=== PATIENT | female | born 1940 | race Caucasian/White ===

== ENCOUNTER 2017-07-31 18:09 | Emergency (ER) | payer MEDICARE ==
[2017-07-31 18:51] LABS: #Basophils 0.1 thou/uL (0.0-0.2); #Eosinphils 0.2 thou/uL (0.0-0.7); #Lymphocytes 1.7 thou/uL (1.20-3.40); #Monocytes 0.8 thou/uL (0.11-0.59); #Neutrophils 5.2 thou/uL (1.40-6.50); %Basophils 0.8 % (0.0-1.0); %Eosinophils 2.9 % (0.0-10.0); %Lymphocytes 21.4 % (21.0-51.0); %Monocytes 9.6 % (0.0-10.0); Hematocrit 46.2 % (36.0-47.0); Mean Platelet Volume 8.2 fL (7.4-10.4); Red Blood Cell (RBC) Count 4.48 mill/uL (4.20-5.40); White Blood Cell (WBC) Count 7.9 thou/uL (4.8-10.8)
[2017-07-31 19:06] LABS: Prothrombin Time 27.8 SEC (12.0-14.7)
[2017-07-31 19:12] LABS: ALT (SGPT) 15 U/L (8-55); AST (SGOT) 28 U/L (5-34); Alkaline Phosphatase 132 U/L (40-150); Anion Gap 14 mmol/L (10-20); BUN (Urea Nitrogen) 23 mg/dL (9.8-20.1); Calc. Creatinine Clearance 0 mL/min (70-130); Calcium 9.2 mg/dL (7.8-10.44); Carbon Dioxide 27 mmol/L (23-31); Chloride 100 mmol/L (98-107); Estimated GFR-MDRD 45; Globulin 3.1 g/dL (2.4-3.5); Protein, Total 7.1 g/dL (6.0-8.3)
[2017-07-31 19:16] LABS: Troponin I Less than 0.010 ng/mL (< 0.028)
--- NOTE | 2017-07-31 19:17 | RAD ---
PORTABLE CHEST: 07/31/17 HISTORY: Heart palpitations. The lungs are clear of infiltrate. No evidence of vascular congestion or edema. Heart size is upper n ormal. Dural lead pacemaker noted. Postoperative changes involving the cervical spine. Left shoulder prosthesis. IMPRESSION: No acute lung process. POS: [facility]
[2017-07-31 22:12] LABS: Troponin I Less than 0.010 ng/mL (< 0.028)
--- NOTE | 2017-09-07 10:41 | EKG ---
Test Reason : PALPITATIONS Blood Pressure : / mmHG Vent. Rate : 069 BPM Atrial Rate : 069 BPM P-R Int : 226 ms QRS Dur : 094 ms QT Int : 410 ms P-R-T Axes : 004 -06 023 degrees QTc Int : 439 ms Atrial-paced rhythm with prolonged AV conduction Nonspecific ST abnormality Abnormal ECG Confirmed by CHRIS Oliveira, PREMA ([id number]), tape editor PAULETTE CAMPBELL ([id number]) on 09/07/2017 10:41:05 AM Referred By: MD PEREZ Confirmed By:PREMA PEREZ M.D.
== END 2017-07-31 22:50 | disposition home or self-care (01) ==
LOC: ERS 18:09
DX: R00.2 Palpitations (principal); E78.5 Hyperlipidemia, unspecified; I10 Essential (primary) hypertension; Z86.73 Personal history of transient ischemic attack (TIA), and cerebral infarction without residual deficits; F32.9 Major depressive disorder, single episode, unspecified
CPT/HCPCS: 36415; 71010; 80053; 82553; 83880; 84484; 85025; 85610; 93005

== ENCOUNTER 2017-08-02 02:05 | Inpatient (IN) | payer MEDICARE ==
[2017-08-02] MEDS ORDERED: Aspirin 325 MG TAB ONE (02:52)
[2017-08-02] MEDS ORDERED: Diltiazem HCl 125 MG, Admixture Fee 1 EACH in Sodium Chloride 0.9% 100 ML SLOW IVP SCH (03:00)
[2017-08-02 03:12] LABS: #Eosinphils 0.2 thou/uL (0.0-0.7); #Monocytes 0.9 thou/uL (0.11-0.59); #Neutrophils 6.3 thou/uL (1.40-6.50); %Basophils 0.4 % (0.0-1.0); %Lymphocytes 21.1 % (21.0-51.0); %Monocytes 9.7 % (0.0-10.0); Mean Platelet Volume 8.2 fL (7.4-10.4); Red Blood Cell (RBC) Count 4.44 mill/uL (4.20-5.40); White Blood Cell (WBC) Count 9.5 thou/uL (4.8-10.8)
[2017-08-02 03:18] LABS: PTT 41.1 SEC (22.9-36.1); Prothrombin Time 27.4 SEC (12.0-14.7)
[2017-08-02 03:32] LABS: ALT (SGPT) 15 U/L (8-55); AST (SGOT) 26 U/L (5-34); Alkaline Phosphatase 155 U/L (40-150); Anion Gap 15 mmol/L (10-20); BUN (Urea Nitrogen) 26 mg/dL (9.8-20.1); Bilirubin, Total 0.5 mg/dL (0.2-1.2); CK (CPK) 35 U/L (29-168); Calc. Creatinine Clearance 0 mL/min (70-130); Calcium 9.2 mg/dL (7.8-10.44); Carbon Dioxide 25 mmol/L (23-31); Chloride 103 mmol/L (98-107); Estimated GFR-MDRD 43; Globulin 3.1 g/dL (2.4-3.5); Lipase 30 U/L (8-78)
[2017-08-02 03:36] LABS: Troponin I Less than 0.010 ng/mL (< 0.028)
[2017-08-02] MEDS ORDERED: Sodium Chloride 0.9% 1,000 ML IV SCH (06:06)
[2017-08-02] MEDS ORDERED: Ondansetron ODT 4 MG TAB SL PRN (06:06)
[2017-08-02] MEDS ORDERED: Acetaminophen 325 MG TAB PO PRN ×2 (06:06→08:10)
[2017-08-02] MEDS ORDERED: Ondansetron HCl/PF 4 MG/2 ML Vial IVP PRN ×2 (06:06→08:10)
[2017-08-02 06:52] VITALS: BMI 36.8
[2017-08-02 06:54] LABS: Troponin I Less than 0.010 ng/mL (< 0.028)
[2017-08-02] MEDS ORDERED: FLU VACC TS2017-18 (>65YR) 0.5 ML SYRINGE IM ONE (07:00)
[2017-08-02] MEDS ORDERED: Ondansetron ODT 4 MG TAB PO PRN (08:10)
[2017-08-02] MEDS ORDERED: ALENDRONATE SODIUM 70 MG PO SCH (08:15)
[2017-08-02] MEDS ORDERED: Warfarin Sodium 5 MG TAB PO SCH (08:15)
[2017-08-02] MEDS ORDERED: Warfarin Sodium 10 MG TAB PO SCH (08:15)
--- NOTE | 2017-08-02 08:34 | HP ---
PRIMARY CARE PHYSICIAN: Lorene Quick. FIRE AND EXPLOSION INVESTIGATOR: Henry Diehl D.O. CHIEF COMPLAINT: "My heart is racing and my chest feels tight and heavy." HISTORY OF PRESENT ILLNESS: Ms. Augustine is a pleasant 77-year-old female that has a history of chroni c atrial fibrillation as well as hypertension and has had an ischemic stroke. She was in her usual s [facility] until Saturday during the day. She says that she had just sat down to watch some TV when she started feeling some racing in her heart and felt like she had some tightness. She came to the emergency room for evaluation and she says by the time she got to the ER, her symptoms had resolv ed and she went home. She says that yesterday it started happening again. This time happened throug hout much of the day and into the night lasting at least 7 hours straight. She says that she felt ag ain the chest tightness which did not radiate, but then she did also have some difficulty with breath ing like she was having an asthma attack. She also felt lightheaded and could tell that her heart wa s racing. For this reason, she came to the ER once again. This time she agreed to admission and was placed on a Cardizem drip and is being admitted for further evaluations. She says she sees Dr. Diehl normally as her natural fabricator and he had planned to see her this coming Saturday and ran some "she says vascular studies" and then after that make some recommendations with regards to her atrial fibrillat ion. REVIEW OF SYSTEMS: CONSTITUTIONAL: There have been no fevers, chills, no night sweats, no weight lo ss. HEENT: No headaches, but some dizziness, no visual changes, no sore throat, rhinorrhea, neck pa in, no adenopathy. PULMONARY: No hemoptysis, no cough. CARDIOVASCULAR: As of the history of prese nt illness. She denies any PND. She denies any increasing lower extremity edema. GASTROINTESTINAL: She denies any abdominal pain. She has had no nausea, no vomiting, no change in bowels. GENITOURI NARY: No urinary frequency, hematuria, no hesitancy. NEUROLOGIC: No focal weakness, numbness or se izures. PSYCHIATRIC: No symptoms of anxiety or depression. SKIN AND INTEGUMENT: No skin changes. No rash. PAST MEDICAL HISTORY: Significant for hyperlipidemia, hypertension, chronic atrial fibrillation, cer ebrovascular disease and CVA in 1999. PAST SURGICAL HISTORY: She has had a pacemaker, cholecystectomy, hysterectomy, bilateral knee replac ement surgeries, left shoulder replacement surgery, cervical and lumbar fusions. ALLERGIES: No known drug allergies. SOCIAL HISTORY: She is . She is a nonsmoker and nondrinker. She had 2 children, one living. FAMILY HISTORY: Significant for cancer in her sister as well as her mother with heart disease in gra ndfather as well. MEDICATIONS: Include sotalol 120 mg daily, CoQ10 100 mg daily, Coumadin 10 mg and 5 mg as directed, omeprazole 20 mg daily, levothyroxine 137 mcg daily, Lasix 40 mg as needed, citalopram 20 mg daily, Coreg 12.5 mg twice a day, atorvastatin 10 mg daily, Elavil 100 mg daily, and alendronate 70 mg once a week. PHYSICAL EXAMINATION: GENERAL: She is alert and oriented. She appears to be in no acute distress. VITAL SIGNS: Her heart rate is ranging from 100-120, respiratory rate of 16, temperature is 97.6, bl ood pressure was 97/57. HEENT: Her pupils are equal, round, and reactive. Extraocular muscles are intact. Her sclerae are anicteric. Throat, no erythema, no exudates. NECK: No adenopathy, no bruits. LUNGS: Clear. No wheezing, no rales. CARDIOVASCULAR: Her heart rate is irregularly irregular and also tachycardic. I am not able to appr eciate any murmurs. ABDOMEN: Soft, it is nontender and nondistended. Positive for bowel sounds. EXTREMITIES: There is trace edema. NEUROLOGIC: Neurologically, the exam is nonfocal. IMAGING AND LABORATORY DATA: On her EKG, it was atrial fibrillation with rapid ventricular response with some nonspecific ST wave changes. INR is 2.4. Her white blood cell count 9.5, hemoglobin 15.8, hematocrit is 46, platelet count is 191. Sodium 139, potassium 3.5, chloride is 103, CO2 is 25, BUN of 26, creatinine 1.23, glucose was 105, troponin is less than 0.010. TSH is slightly elevated at 6 .5. ASSESSMENT AND PLAN: 1. This is a pleasant 77-year-old female who was admitted with atrial fibrillation and rapid ventric ular response. She is already on sotalol as well as Coreg. However, she has had a rapid heart rate despite these two medications. She will be admitted and started on IV Cardizem. Her blood pressure is actually slightly low and since she is already on an antiarrhythmic, I will hold off on adding dig oxin. She is relatively asymptomatic, but again her blood pressure is on the lower side. Cardiology will be consulted to help continue the management of the atrial fibrillation. She is already antico agulated with therapeutic INR for stroke prevention. 2. For hypertension, as previously stated, her blood pressure is on the low side; therefore, we will hold on Coreg. At this time, she also does not appear to be volume overloaded and therefore Lasix c an be held as well. 3. History of hypothyroidism, her TSH is elevated, which would actually indicate that she is underre placed with regards to her thyroid function. We will check a free T4 for completeness. 4. Further recommendations will be based on Cardiology input.
[2017-08-02] MEDS ORDERED: Non-Formulary Item 1 EACH (Levothyroxine Sodium [Synthroid] 137 MCG) PO SCH (09:00)
[2017-08-02] MEDS ORDERED: Non-Formulary Item 1 EACH (Ubidecarenone [Coq-10] 100 MG) PO SCH (09:00)
[2017-08-02] MEDS ORDERED: Aspirin 325 MG TAB PO SCH (09:00)
[2017-08-02] MEDS ORDERED: Non-Formulary Item 1 EACH (Sotalol Hcl [Sotalol] 120 MG) PO SCH (09:00)
[2017-08-02] MEDS: Amitriptyline HCl 100 MG TAB PO SCH (09:04)
[2017-08-02] MEDS: Atorvastatin Calcium 10 MG TAB PO SCH (09:05)
[2017-08-02] MEDS: Famotidine 20 MG TAB PO SCH ×2 (09:05→20:49)
[2017-08-02] MEDS: Sotalol HCl 80 MG TAB PO SCH (09:05)
[2017-08-02] MEDS: Ubidecarenone 50 MG CAP PO SCH (09:05)
[2017-08-02] MEDS: Citalopram 20 MG TAB PO SCH (09:09)
--- NOTE | 2017-08-02 10:12 | RAD ---
PORTABLE UPRIGHT FRONTAL CHEST RADIOGRAPH: Date: 08-02-17 Comparison: 07-31-17 History: Chest pain. FINDINGS: Stable dual-lead transvenous pacing device. Incompletely assessed cervical and lumbar spine hardware are present. There is a left shoulder arthroplasty present. There is no pneumothorax, pleural fluid, focal consolidation or alveolar edema. Descending thoracic aorta is tortuous. IMPRESSION: Stable appearance of the chest. POS: [facility]
[2017-08-02 10:14] LABS: Troponin I Less than 0.010 ng/mL (< 0.028)
--- NOTE | 2017-08-02 12:52 | CON ---
DATE OF CONSULTATION: 08/02/2017 REASON FOR CONSULTATION: Atrial fibrillation. HISTORY OF PRESENT ILLNESS: Ms. Augustine is a very pleasant 77-year-old woman who is a patient of Dr. Buddy Diehl. The patient has a history of paroxysmal atrial fibrillation. Recently, she presented wit h heart racing and tachycardia. She states she has had more episodes in the last several months. Emelia hannah has been on sotalol and monitored by Dr. Buddy Diehl. During my visit, she converted to sinus rhythm and feels much better. PAST MEDICAL HISTORY: Hypertension, hyperlipidemia, atrial fibrillation, CVA, pacemaker, cholecystec heraclio, hysterectomy, bilateral knee replacement, left shoulder surgery, lumbar fusion. ALLERGIES: None. SOCIAL HISTORY: No current tobacco or alcohol use. HOME MEDICATIONS: Include sotalol, CoQ 10, Coumadin, omeprazole, levothyroxine, Lasix, citalopram, C oreg, atorvastatin, Elavil and alendronate. REVIEW OF SYSTEMS: Ten point review of systems is reviewed and as above, otherwise negative. PHYSICAL EXAMINATION: VITAL SIGNS: 106/55, pulse 60, temperature 98.5. GENERAL: Patient is a pleasant female who is in no acute distress. The patient appears her stated ag e. NEUROLOGIC: The patient is alert and oriented times 3 with no focal neurologic deficits. HEENT: Sclerae without icterus. Mouth has moist mucous membranes with normal pallor. NECK: No JVD. Carotid upstroke brisk. No bruits bilaterally. LUNGS: Clear to auscultation with unlabored respirations. BACK: No scoliosis or kyphosis. CARDIAC: Regular rate and rhythm with normal S1 and S2. No S3 or S4 noted. No significant rubs, mur murs, thrills, or gallops noted throughout the precordium. PMI is not displaced. There is no parast ernal heave. ABDOMEN: Soft, nontender, nondistended. No peritoneal signs present. No hepatosplenomegaly. No abn ormal striae. EXTREMITIES: 2+ femoral and 2+ dorsalis pedis pulses. No cyanosis, clubbing, or edema. SKIN: No gross abnormalities. PERTINENT LABS: Hemoglobin 15.8, INR of 2.4, creatinine 1.23. TSH 6.55. IMPRESSION: Paroxysmal atrial fibrillation. RECOMMENDATIONS: The patient's creatinine clearance is estimated at 75 so will not make any adjustme nts in her sotalol. Will continue. I did discuss ablation given that her symptoms are now occurring more often. She is open to the recommendation. From my standpoint, would continue Coumadin in rubio tion to sotalol. It would be okay from my standpoint to discharge home with close outpatient followu guille
[2017-08-02] MEDS: Nystatin Cream 30 GM TUBE TOP SCH (21:10)
[2017-08-03 05:58] LABS: Prothrombin Time 35.7 SEC (12.0-14.7)
[2017-08-03] MEDS ORDERED: Levothyroxine Sodium 112 MCG TAB PO SCH (06:00)
[2017-08-03] MEDS ORDERED: Levothyroxine Sodium 25 MCG TAB PO SCH (06:00)
[2017-08-03 06:21] LABS: Anion Gap 10 mmol/L (10-20); BUN (Urea Nitrogen) 15 mg/dL (9.8-20.1); Calc. Creatinine Clearance 95 mL/min (70-130); Calcium 8.4 mg/dL (7.8-10.44); Carbon Dioxide 24 mmol/L (23-31); Chloride 109 mmol/L (98-107); Estimated GFR-MDRD 67
--- NOTE | 2017-08-03 08:02 | PDOC.PN ---
- Subjective Encounter Start Date: 08/03/17 Encounter Start Time: 08:00 Ms. Augustine was seen today in follow-up of atrial fibrillation. She does not have any complaints today. - Objective Resuscitation Status: Resuscitation Status FULL:Full Resuscitation MAR Reviewed: Yes Vital Signs & Weight: Vital Signs (12 hours) Temp Pulse Resp BP Pulse Ox 08/03/17 06:12 97.8 F 61 18 110/55 L 94 L Weight Admit Weight 227 lb 14.4 oz Weight 227 lb 8 oz I&O: 08/02/17 08/03/17 08/04/17 06:59 06:59 06:59 Intake Total 1160 Output Total 300 Balance 860 Result Diagrams: 08/02/17 02:57 08/03/17 05:28 Phys Exam - Physical Examination HEENT: PERRLA Respiratory: no wheezing, no rales, no rhonchi, clear to auscultation bilateral Cardiovascular: RRR, no significant murmur Gastrointestinal: soft, non-tender, positive bowel sounds Musculoskeletal: no edema Dx/Plan (1) Atrial fibrillation Code(s): I48.91 - UNSPECIFIED ATRIAL FIBRILLATION Status: Acute (2) Hypertension Code(s): I10 - ESSENTIAL (PRIMARY) HYPERTENSION Status: Chronic (3) Cerebral vascular accident Code(s): I63.9 - CEREBRAL INFARCTION, UNSPECIFIED Status: Resolved - Plan * Atrial Fibrillation- she has converted to sinus * HTN- blood pressure is on the lower side * She is stable from the Cardiac standpoint for discharge home. * Follow-up with Dr. Diehl on Saturday as scheduled
[2017-08-03 08:08] VITALS: BP 136/70; TEMP 98.9
[2017-08-03] MEDS: Sotalol HCl 80 MG TAB PO SCH (08:27)
[2017-08-03] MEDS: Atorvastatin Calcium 10 MG TAB PO SCH (08:27)
[2017-08-03] MEDS: Ubidecarenone 50 MG CAP PO SCH (08:27)
[2017-08-03] MEDS: Famotidine 20 MG TAB PO SCH (08:27)
[2017-08-03] MEDS: Amitriptyline HCl 100 MG TAB PO SCH (08:28)
[2017-08-03] MEDS: Citalopram 20 MG TAB PO SCH (08:28)
[2017-08-03] MEDS: Nystatin Cream 30 GM TUBE TOP SCH (08:29)
--- NOTE | 2017-08-03 16:21 | DIS ---
DATE OF ADMISSION: 08/02/2017 DATE OF DISCHARGE: 08/03/2017 PRIMARY CARE PHYSICIAN: HAN Hernandez DISCHARGE DISPOSITION: Home. PRIMARY DISCHARGE DIAGNOSES: 1. Atrial fibrillation with rapid ventricular response. 2. Hypertension. 3. History of hypothyroidism. DISCHARGE MEDICATIONS: Please note that the patient's Coreg is on hold due to low blood pressures as well as Lasix is also on hold. She is to continue sotalol 120 mg daily, CoQ10 of 100 mg daily, levo thyroxine 137 mcg p.o. daily, Celexa 20 mg daily, atorvastatin 10 mg daily, Elavil 100 mg daily, santiago dronate 70 mg every 7 days, and Coumadin 10 mg alternating with 5mg. Please note that the patient is to take the 5 mg dose of Coumadin tonight instead of 10 due to an INR of 3.4. CODE STATUS: FULL CODE. ALLERGIES: No known drug allergies. HOSPITAL COURSE: Ms. Augustine is a pleasant 77-year-old female who presented to the emergency room aft er having chest heaviness as well as a racing in her heart. She was evaluated in the ER and found to be in atrial fibrillation with rapid ventricular response. She was admitted and started on a Cardiz em drip. The following day the patient's heart rate improved and she was seen by Cardiology while sh e was being evaluated by Cardiology, she converted into sinus rhythm and has remained in sinus rhythm overnight. She has an appointment in just [address] Diehl on Saturday and Dr. Michele leos that she could be discharged home and follow up with Dr. Diehl on Saturday as already scheduled and co ntinue the sotalol and consider ablation in the outpatient setting.
[2017-08-03] MEDS ORDERED: Warfarin Sodium 5 MG TAB PO SCH (17:00)
[2017-08-04] MEDS ORDERED: Warfarin Sodium 10 MG TAB PO SCH (17:00)
[2017-08-05] MEDS ORDERED: Alendronate Sodium 70 mg Tablet PO SCH (06:00)
== END 2017-08-03 10:27 | disposition home or self-care (01) | DRG 310 ==
LOC: ERS 02:05 → 2SW 03:49 → OBSVTOIN 08:10 → 2NO 09:41
PROVIDERS: ADMIT Internal Medicine; ATTEND Internal Medicine
DX: I48.0 Paroxysmal atrial fibrillation (principal); I10 Essential (primary) hypertension; Z79.01 Long term (current) use of anticoagulants; E03.9 Hypothyroidism, unspecified; E78.5 Hyperlipidemia, unspecified; Z86.73 Personal history of transient ischemic attack (TIA), and cerebral infarction without residual deficits; Z95.0 Presence of cardiac pacemaker; Z96.653 Presence of artificial knee joint, bilateral; Z96.612 Presence of left artificial shoulder joint
CPT/HCPCS: 36415; 71010; 80048; 80053; 82553; 83690; 83880; 84439; 84443; 84484; 85025; 85610; 85730; 90471; 90682; 93005; 96361; 96365; 96376; A4216; G0008; J7050; Q2036

== ENCOUNTER 2017-08-15 10:30 | Emergency (ER) | payer MEDICARE ==
[2017-08-15 11:33] LABS: Hematocrit 48.5 % (36.0-47.0); Mean Platelet Volume 8.8 fL (7.4-10.4); Red Blood Cell (RBC) Count 4.68 mill/uL (4.20-5.40); White Blood Cell (WBC) Count 7.2 thou/uL (4.8-10.8)
[2017-08-15 11:49] LABS: Troponin I Less than 0.010 ng/mL (< 0.028)
[2017-08-15 11:50] LABS: ALT (SGPT) 18 U/L (8-55); AST (SGOT) 46 U/L (5-34); Alkaline Phosphatase 124 U/L (40-150); Anion Gap 14 mmol/L (10-20); BUN (Urea Nitrogen) 26 mg/dL (9.8-20.1); Bilirubin, Total 0.8 mg/dL (0.2-1.2); CK (CPK) 24 U/L (29-168); Calc. Creatinine Clearance 0 mL/min (70-130); Calcium 9.3 mg/dL (7.8-10.44); Carbon Dioxide 28 mmol/L (23-31); Chloride 104 mmol/L (98-107); Estimated GFR-MDRD 49; Globulin 3.8 g/dL (2.4-3.5); Protein, Total 7.7 g/dL (6.0-8.3)
[2017-08-15 11:59] LABS: #Eosinphils 0.2 thou/uL (0.0-0.7); #Lymphocytes 1.5 thou/uL (1.20-3.40); #Monocytes 0.7 thou/uL (0.11-0.59); #Neutrophils 4.8 thou/uL (1.40-6.50); %Basophils 0.1 % (0.0-1.0); %Eosinophils 2.2 % (0.0-10.0); %Lymphocytes 20.7 % (21.0-51.0); %Monocytes 9.9 % (0.0-10.0)
--- NOTE | 2017-08-15 12:19 | RAD ---
PORTABLE UPRIGHT FRONTAL CHEST RADIOGRAPH: 08/15/2017 HISTORY: Chest pain and shortness of breath. COMPARISON: 08/02/2017 FINDINGS: There is a shoulder arthroplasty on the left. There is cervical spine hardware present. There is a dual-lead transvenous pacing device. There is no pneumothorax, pleural fluid, focal consolidation, o r alveolar edema. IMPRESSION: No acute findings. Stable appearance of the chest. POS: [facility]
[2017-08-15 13:04] LABS: PTT 34.1 SEC (22.9-36.1)
== END 2017-08-15 15:22 | disposition home or self-care (01) ==
LOC: ERS 10:30
DX: I48.91 Unspecified atrial fibrillation (principal); E78.5 Hyperlipidemia, unspecified; I10 Essential (primary) hypertension; F32.9 Major depressive disorder, single episode, unspecified
CPT/HCPCS: 71010; 80053; 82553; 84484; 85025; 85610; 85730; 93005

== ENCOUNTER 2018-04-23 07:29 | Outpatient (CLI) | payer MEDICARE ==
--- NOTE | 2018-04-23 10:10 | CT ---
CTA CHEST WITH CONTRAST: TECHNIQUE: Multiple axial tomograms obtained through the chest with attenuation to the heart. Arterial phase en hancement was performed following a coronary artery angio. Multiplanar reconstruction. INDICATION: Coronary mapping prior to ablation procedure. FINDINGS: Origin of the left and right coronary arteries appear normally located. There is calcified plaque in volving the left main extending to the bifurcation with some calcification seen at the proximal LAD. Calcification is also present in the proximal circumflex and LAD. There is mitral annulus calcifica tion noted. There is not a dedicated coronary artery CT exam and, therefore, is not adequate for assessing soares ry stenosis. The patient is right coronary dominant. There is a dual-lead pacemaker device in place with a right atrial lead and a right ventricular lead which appear adequately positioned. Coronary veins appear normal. There is a small sliding diaphragmatic hernia. There is a small eventration involving the posterior left hemidiaphragm. There are chronic lung pare nchymal changes, although the lung conner are not completely imaged. Most of the right lung is not i sujata. IMPRESSION: 1. Coronary artery calcification as described. Coronary artery anatomy appears normal with patient being right coronary dominant. 2. There is no evidence of proximal pulmonary embolus. There is no evidence of thoracic aortic diss ection. No evidence of thoracic aortic aneurysm. POS: [facility]
[2018-04-23 10:41] LABS: Hemoglobin 15.9 g/dL (12.0-16.0); Mean Corpuscular HGB CONC 33.7 g/dL (32.0-36.0); Mean Corpuscular Hemoglobin 33.7 pg (27.0-31.0); Mean Platelet Volume 9.4 fL (7.4-10.4); Platelet Count 137 thou/uL (130-400); RBC Distribution Width 12.1 % (11.5-14.5); Red Blood Cell (RBC) Count 4.73 mill/uL (4.20-5.40); White Blood Cell (WBC) Count 5.2 thou/uL (4.8-10.8)
[2018-04-23 10:47] LABS: INR-International Normal Ratio 3.3; Prothrombin Time 33.4 SEC (12.0-14.7)
[2018-04-23 10:48] LABS: PTT 51.3 SEC (22.9-36.1)
[2018-04-23 10:59] LABS: Anion Gap 12 mmol/L (10-20); BUN (Urea Nitrogen) 11 mg/dL (9.8-20.1); Calc. Creatinine Clearance 0 mL/min (70-130); Calcium 8.7 mg/dL (7.8-10.44); Carbon Dioxide 23 mmol/L (23-31); Chloride 106 mmol/L (98-107); Estimated GFR-MDRD 57; Glucose 94 mg/dL (83-110); Potassium 4.2 mmol/L (3.5-5.1); Sodium 137 mmol/L (136-145)
--- NOTE | 2018-04-23 12:22 | EKG ---
Test Reason : Blood Pressure : / mmHG Vent. Rate : 065 BPM Atrial Rate : 068 BPM P-R Int : 000 ms QRS Dur : 150 ms QT Int : 488 ms P-R-T Axes : 000 -72 094 degrees QTc Int : 507 ms Electronic ventricular pacemaker When compared with ECG of 15-AUG-2017 12:35, Electronic ventricular pacemaker has replaced Electronic atrial pacemaker (Ventricular pacing has rep laced atrial paced rhythm) Confirmed by KHOA BARAJAS ([id number]) on 04/23/2018 12:21:55 PM Referred By: BHAVANA Confirmed By:KHOA BARAJAS
[2018-04-23] MEDS ORDERED: Iopamidol 370 76% 100 ML VIAL ONE (13:32)
== END 2018-04-23 07:30 | disposition home or self-care (01) ==
LOC: CT 07:29
PROVIDERS: ATTEND Internal Medicine Cardiovascular Disease
DX: I48.91 Unspecified atrial fibrillation (principal); I25.10 Atherosclerotic heart disease of native coronary artery without angina pectoris
CPT/HCPCS: 71275; 80048; 82565; 85027; 85610; 85730; 93005; 93010

== ENCOUNTER 2018-07-24 16:13 | Observation (INO) | payer MEDICARE ==
[2018-07-24 17:10] LABS: #Eosinphils 0.3 thou/uL (0.0-0.7); #Lymphocytes 1.8 thou/uL (1.20-3.40); #Monocytes 0.8 thou/uL (0.11-0.59); %Basophils 0.4 % (0.0-1.0); %Eosinophils 2.7 % (0.0-10.0); %Lymphocytes 17.8 % (21.0-51.0); Hemoglobin 16.9 g/dL (12.0-16.0); Mean Corpuscular HGB CONC 32.7 g/dL (32.0-36.0); Mean Corpuscular Hemoglobin 32.1 pg (27.0-31.0); Mean Platelet Volume 8.6 fL (7.4-10.4); Platelet Count 222 thou/uL (130-400); Red Blood Cell (RBC) Count 5.28 mill/uL (4.20-5.40); White Blood Cell (WBC) Count 9.9 thou/uL (4.8-10.8)
[2018-07-24 17:32] LABS: ALT (SGPT) 14 U/L (8-55); AST (SGOT) 23 U/L (5-34); Alkaline Phosphatase 132 U/L (40-150); Anion Gap 16 mmol/L (10-20); BUN (Urea Nitrogen) 24 mg/dL (9.8-20.1); Bilirubin, Total 1.2 mg/dL (0.2-1.2); CK (CPK) 35 U/L (29-168); Calc. Creatinine Clearance 0 mL/min (70-130); Calcium 9.1 mg/dL (7.8-10.44); Carbon Dioxide 26 mmol/L (23-31); Chloride 100 mmol/L (98-107); Estimated GFR-MDRD 45; Globulin 3.3 g/dL (2.4-3.5); Glucose 102 mg/dL (83-110); Potassium 4.1 mmol/L (3.5-5.1); Protein, Total 7.3 g/dL (6.0-8.3); Sodium 138 mmol/L (136-145)
[2018-07-24 17:36] LABS: CKMB 1.6 ng/mL (0-6.6); Troponin I Less than 0.010 ng/mL (< 0.028)
--- NOTE | 2018-07-24 18:21 | RAD ---
CHEST TWO VIEWS: 07/24/18 INDICATION: History of chest pain and heart palpitations. COMPARISON: Prior chest radiograph dated 08/15/17. FINDINGS: There is a dual lead pacemaker overlying the left chest wall. Heart size is normal. Lungs are clear. There is extensive instrumentation involving the lumbar spine and cervical spine. There is a left to ted shoulder replacement. IMPRESSION: No acute cardiopulmonary abnormality. POS: [facility]
[2018-07-24 20:15] LABS: INR-International Normal Ratio 1.8; PTT 35.8 SEC (22.9-36.1); Prothrombin Time 21.3 SEC (12.0-14.7)
[2018-07-24 21:14] LABS: Troponin I Less than 0.010 ng/mL (< 0.028)
[2018-07-24] MEDS ORDERED: Sodium Chloride 0.9% 1,000 ML IV SCH (21:18)
[2018-07-24 21:20] VITALS: BMI 38.9
[2018-07-24] MEDS: Sodium Chloride 0.9% 1,000 ML IV SCH (22:02)
[2018-07-24] MEDS ORDERED: Senokot S 8.6-50 MG TAB PO PRN (22:14)
[2018-07-24] MEDS ORDERED: Ondansetron ODT 4 MG TAB PO PRN (22:14)
[2018-07-24] MEDS ORDERED: Ondansetron PF 4 MG/2 ML Vial IVP PRN (22:14)
[2018-07-24] MEDS ORDERED: traMADol HCl 50 MG TAB PO PRN (22:20)
[2018-07-24] MEDS ORDERED: Carvedilol 6.25 MG TAB PO SCH (22:45)
[2018-07-24] MEDS ORDERED: Warfarin Sodium 5 MG TAB PO SCH (22:45)
[2018-07-24] MEDS ORDERED: Atorvastatin Calcium 10 MG TAB PO SCH ×2 (22:45→23:15)
[2018-07-24] MEDS ORDERED: Sotalol HCl 80 MG TAB PO SCH (22:45)
[2018-07-24] MEDS ORDERED: Famotidine 20 MG TAB PO SCH (22:45)
[2018-07-24] MEDS ORDERED: Amitriptyline HCl 100 MG TAB PO SCH (22:45)
[2018-07-24 23:25] LABS: Troponin I Less than 0.010 ng/mL (< 0.028)
[2018-07-24] MEDS ORDERED: Digoxin 0.5 MG/2 ML AMP SLOW IVP SCH (23:45)
[2018-07-25] MEDS ORDERED: Digoxin 0.5 MG/2 ML AMP ONE (00:01)
[2018-07-25] MEDS: Levothyroxine 150 MCG TAB PO SCH (04:05)
--- NOTE | 2018-07-25 04:09 | HP ---
CHIEF COMPLAINT: Palpitations. HISTORY OF PRESENT ILLNESS: This is a 78-year-old female with past medical history of hyperlipidemia, hypertension, ischemic cerebrovascular accident, status post pacemaker presenting with palpitations. Per the patient, she normally gets palpitations. Recently, she actually had a cardiac ablation done. The date of the cardiac ablation was 04/24/2018 and patient also received a pacemaker, because her old pacemaker was not working. Patient states that after the procedure, she has had some palpitations, which had spontaneously resolved; however, on the night prior to the day of admission, patient states that she sustained severe palpitations, which was not stopping. Patient states that regardless of what she did, she chewed some aspirin, nitro it did not help. Therefore, the patient decided to come into the hospital to be evaluated today. At this point, patient denies any headaches, shortness of breath, chest pain, abdominal pain, hematuria, hematochezia, melena. Of note, patient was seen in our hospital on 08/02/2017 and was admitted for atrial fibrillation RVR. Patient also was treated for hypertension and hypothyroidism during that time. REVIEW OF SYSTEMS: Positive for palpitations. Otherwise, as documented in the HPI. All systems were reviewed and are negative. PAST MEDICAL HISTORY: Atrial fibrillation, hyperlipidemia, hypertension, CVA, coronary artery disease, status post pacemaker. FAMILY HISTORY: Reviewed and noncontributory. PAST SURGICAL HISTORY: Cholecystectomy, hysterectomy, bilateral knee replacement, left shoulder surgical repair, lumbar and cervical surgeries. PSYCHIATRIC HISTORY: Depression. SOCIAL HISTORY: Patient drinks wine. Patient denies any illicit drug use and patient denies any smoking history. ALLERGIES: No known drug allergies. CURRENT MEDICATIONS: 1. Patient takes alendronate 70 mg. 2. Patient takes furosemide 20 mg p.o. b.i.d. 3. Patient takes potassium chloride 15 mEq p.o. every a.m. 4. Patient takes amitriptyline 100 mg p.o. 5. Patient takes atorvastatin calcium 10 mg p.o. 6. Carvedilol 12.5 mg b.i.d. 7. Vitamin D3 of 2000 units. 8. Fluoxetine 20 mg p.o. daily. 9. Levothyroxine 150 mcg. 10. Omeprazole 20 mg. 11. Sotalol 120 mg. 12. Tramadol 50 mg p.o. q.4 p.r.n. 13. Warfarin 5 mg. PHYSICAL EXAMINATION: VITAL SIGNS: Blood pressure is 94/51, pulse of 128, respiratory rate of 18, temperature of 98.3, O2 sat is 95. GENERAL: Patient is lying in bed, alert, oriented x3, does not appear to be in any acute distress. HEENT: Normocephalic, atraumatic. Pupils are equal, round, and reactive to light. Extraocular movements are intact. No scleral icterus. No conjunctival pallor. Mucous membranes are moist. Trachea is midline. NECK: No JVD. Full range of motion. LUNGS: Clear to auscultation bilaterally. No wheezing, no rales, no rhonchi is appreciated. CARDIOVASCULAR: Irregularly irregular. No murmur appreciated. ABDOMEN: Soft, nontender, nondistended, obese, positive bowel sounds in all quadrants. EXTREMITIES: Patient has 5/5 upper extremity strength and 5/5 lower extremity strength. No edema noted. Good pulses bilaterally at the upper and lower extremities. PSYCHIATRIC: Normal affect, alert and oriented x3. ASSESSMENT AND PLAN: This is a 78-year-old female being admitted for, 1. Atrial fibrillation with rapid ventricular response, patient has been started on digoxin. We will continue digoxin. We have consulted Cardiology, we will follow up with the recommendations. 2. Hypertension. We will monitor the patient's blood pressure closely. Currently, patient's blood pressure is on the low side. Blood pressure is about 100 systolic. We will continue to monitor the patient's blood pressure closely. 3. Hypothyroidism. Continue patient on home medications. 4. Acute on chronic kidney disease. We will continue patient on gentle hydration. We will stop all diuretics. 5. Deep venous thrombosis and gastrointestinal prophylaxis. MTDD
[2018-07-25 06:33] LABS: #Eosinphils 0.2 thou/uL (0.0-0.7); #Lymphocytes 1.7 thou/uL (1.20-3.40); #Monocytes 0.8 thou/uL (0.11-0.59); %Basophils 0.4 % (0.0-1.0); %Eosinophils 2.4 % (0.0-10.0); %Lymphocytes 19.7 % (21.0-51.0); %Monocytes 9.4 % (0.0-10.0); %Neutrophils 68.1 % (42.0-75.0); Mean Corpuscular HGB CONC 32.4 g/dL (32.0-36.0); Mean Corpuscular Volume 98.9 fL (78.0-98.0); Mean Platelet Volume 8.5 fL (7.4-10.4); Platelet Count 162 thou/uL (130-400); Red Blood Cell (RBC) Count 4.68 mill/uL (4.20-5.40); White Blood Cell (WBC) Count 8.8 thou/uL (4.8-10.8)
[2018-07-25] MEDS: Digoxin 0.5 MG/2 ML AMP SLOW IVP SCH ×2 (06:36→12:12)
[2018-07-25 06:47] LABS: Anion Gap 11 mmol/L (10-20); BUN (Urea Nitrogen) 22 mg/dL (9.8-20.1); Calc. Creatinine Clearance 89 mL/min (70-130); Calcium 8.3 mg/dL (7.8-10.44); Carbon Dioxide 26 mmol/L (23-31); Chloride 107 mmol/L (98-107); Estimated GFR-MDRD 59; Glucose 93 mg/dL (83-110); Potassium 3.6 mmol/L (3.5-5.1); Sodium 140 mmol/L (136-145)
[2018-07-25] MEDS: FLUoxetine HCl 20 MG CAP PO SCH (08:20)
[2018-07-25] MEDS: Sodium Chloride 0.9% 1,000 ML IV SCH (08:20)
[2018-07-25] MEDS: Acetaminophen 325 MG TAB PO PRN ×2 (08:21→21:38)
[2018-07-25] MEDS: Famotidine 20 MG TAB PO SCH ×3 (08:23→22:17)
[2018-07-25] MEDS ORDERED: Famotidine/PF 20 mg/2ml Vial SLOW IVP SCH (09:00)
[2018-07-25] MEDS ORDERED: Carvedilol 6.25 MG TAB PO SCH (09:00)
[2018-07-25] MEDS ORDERED: Non-Formulary Item 1 EACH (Omeprazole [Omeprazole] 20 MG) PO SCH (09:00)
[2018-07-25] MEDS ORDERED: PROPOFOL 200 MG/20 ML VIAL ONE (12:46)
[2018-07-25] MEDS ORDERED: PROPOFOL 20 ML ONE (12:49)
[2018-07-25] MEDS ORDERED: Sotalol HCl 80 MG TAB PO SCH ×3 (14:00→21:00)
--- NOTE | 2018-07-25 14:18 | CON ---
DATE OF CONSULTATINO: 07/25/2018 REFERRING PHYSICIAN: Suresh Bautista M.D. REASON FOR CONSULTATION: Atrial fibrillation with RVR. HISTORY OF PRESENT ILLNESS: Ms. Augustine is a 78-year-old woman known to our service for history of dr gifty refractory atrial fibrillation. She was initially seen by Dr. Btaeman in February of this year for atr ial fibrillation which was inadequately suppressed on sotalol and having a very symptomatic breakthro [facility] arrhythmia issues. She underwent elective pulmonary venous isolation ablation on 04/24/[address] Bateman and at that time she received a total minute 27 minutes RF energy delivered. She has bee n on sotalol for approximately 10 years by her recollection. She takes 120 mg once a day. She fredrick nued taking this medication after her ablation. She has not gone to our clinic for any followup visi ts since the time of her ablation. The day after her ablation she also had a generator change for he r pacemaker which was at [facility] and again she has not presented for any of her followup appointments for this either. She has a Medtronic dual chamber pacemaker. She contacted our office yesterday and s reporting heart racing and palpitations that have been ongoing since the day before. Now, she has had 1 or 2 similar episodes since her ablation, reports that they were all short in duration, lasting less than 3-4 hours and self-terminating. She has associated headache with her heart racing and pal pitations. She presented to the emergency room at [place] yesterday evening on the and found to be in atrial fibrillation with RVR. She was given some digoxin for rate control and placed in ob servation. Also, she takes warfarin for stroke prophylaxis, her INR was checked and it is slightly s ubtherapeutic at 1.8. Ms. Augustine today is feeling slightly improved with her heart rate under better control. She denies a ny shortness of breath, chest pain or pressure, syncope, near syncope, stroke or stroke-like symptoms . She does endorse that she has been very faithful with her warfarin, but has difficulty keeping the rapeutic INR ranges. She denies having missed any doses of her warfarin of late. PAST MEDICAL HISTORY: 1. Drug refractory atrial fibrillation, status post ablation in 04/2018. 2. Hyperlipidemia. 3. Hypertension. 4. Cerebrovascular accident. 5. Dual chamber permanent pacemaker placed for sinus node dysfunction. 6. Coronary artery disease (listed in her chart the patient denies ever having left heart catheteriz ation stent or bypass). REVIEW OF SYSTEMS: Positive for heart racing, palpitations and as per HPI, otherwise 12-point review of systems was conducted and negative. FAMILY HISTORY: Noncontributory. SOCIAL HISTORY: Positive for alcohol intake. Negative for illicit drug use or tobacco use. ALLERGIES: No known drug allergies. MEDICATIONS: Tramadol 50 mg q.4 hours p.r.n., warfarin 5 mg p.o. daily, sotalol 120 mg p.o. q.p.m., potassium 16 mEq q.a.m., omeprazole 20 mg q.a.m., Synthroid 150 mcg q.a.m., Lasix 20 mg p.o. q.a.m., Prozac 20 mg p.o. q.a.m., vitamin D 2000 units p.o. at bedtime, Coreg 12.5 mg p.o. b.i.d., atorvastat in 10 mg p.o. q.p.m., Elavil 100 mg p.o. q.p.m., and alendronate sodium 70 mg p.o. weekly. PHYSICAL EXAMINATION: VITAL SIGNS: Most recent vital signs; 98.2, pulse 121, respirations 18, oxygen is 95% on room air, b lood pressure 125/83, respirations are 14. GENERAL: Ms. Augustine is well groomed, well nourished. She is alert and oriented. Her speech is rimma r. Her affect is appropriate. NECK: Supple without jugular venous distention. Her thyroid is nonpalpable. LUNGS: Clear to auscultation bilaterally without wheezes, crackles or rhonchi. CARDIOVASCULAR: Heart rate is irregularly irregular and rapid. PMI is nondisplaced. ABDOMEN: Soft, nontender without palpable masses. EXTREMITIES: Warm and dry to touch without clubbing, cyanosis or edema. NEUROLOGIC: Grossly intact and nonfocal. Gait was not assessed. TELEMETRY: Telemetry was personally reviewed and reflect atrial fibrillation with varying RVR betwee n 100 and 130 beats per minute. No 12-lead EKGs were obtained, one has been ordered. LABORATORY: Chemistry: Potassium 3.6, creatinine 0.93 otherwise unremarkable. INR is 1.8. Hematol ogy is unremarkable. DEVICE INTERROGATION: The patient has a Medtronic dual chamber pacemaker, generator change in , adequate battery voltage. Normal functioning device shows atrial fibrillation burden of approxima tely 3% with ongoing atrial fibrillation since 07/23/2018. Additional episodes were seen in mid Sept ember that were less than 6 hours and self-terminating. ATP therapies are on and have less than 20% success rate at terminating atrial arrhythmias and restoring sinus mechanism. No additional arrhythm ias were seen. No programming changes were made to the device today. ASSESSMENT AND PLAN: 1. Paroxysmal atrial fibrillation with rapid ventricular response, refractory to sotalol. 2. CHADS-VASc score of 4, for age, gender and hypertension (not including coronary artery disease as the patient declines this in her history). 3. Oral anticoagulation on warfarin, subtherapeutic INR. RECOMMENDATIONS: We discussed atrial fibrillation and treatment options with Ms. Augustine. At this po int, she is only taking her sotalol once a day at a moderate dose. We will change her to 80 mg twice a day which will be a slight increase in the dose, but give her more consistent coverage from day to day and hopefully this will provide additional arrhythmia suppression for her. We will keep her ove rnight for monitoring of her 12-lead EKG and watching for any QTC prolongation with the increase in h er sotalol. We increased her warfarin to 7.5 mg with a repeat INR check in the morning, though she w ill likely need 7.5 mg and a repeat INR check in 3-4 days. She tells me that she gets her INRs check ed at [facility], but is considering having it checked at a clinic closer to her, bu t they are managed through Dr. aButista's office. I would recommend close followup with [facility] for tighter management of her INRs. Ultimately this is a late recurrence of her atrial fibr illation after her ablation in April and she will likely require redo ablation for more permanent tr eatment of her arrhythmias, but for now we will continue with antiarrhythmic drugs for suppression of her arrhythmias. In the meantime, we will proceed with a KERON cardioversion. We discussed risks, be nefits, and alternatives. She voices understanding and is willing to proceed which will be arranged shortly hereafter. Thank you for allowing us to participate in the care of this patient.
--- NOTE | 2018-07-25 14:21 | OP ---
DATE OF PROCEDURE: 07/25/2018 REASON FOR PROCEDURE: Mrs. Augustine is a 78-year-old woman with a history of atrial arrhythmias prior ablation in April, now with recurrent atypical atrial flutter. PROCEDURE: The patient received propofol Anesthesia specialist. After adequate level of sedation ac hieved, a 70 joule shock promptly converted the patient back to sinus rhythm, returned rate is 72 jennifer ts per minute. CONCLUSION: Successful cardioversion. PLAN: Increase sotalol 80 mg twice a day dose.
--- NOTE | 2018-07-25 16:12 | PDOC.PN ---
- Subjective Encounter Start Date: 07/25/18 Encounter Start Time: 16:11 Patient seen and examined with at bedside. She is s/p cardioversion that was successful. No complaints at this time. She denies chest pain, shortness of breath or palpitations. Dr Espinal following and increased Sotolol and Coumadin. - Objective Resuscitation Status: Resuscitation Status DNR:Do Not Resuscitate MAR Reviewed: Yes Vital Signs & Weight: Vital Signs (12 hours) Temp Pulse Resp BP BP Pulse Ox 07/25/18 15:30 98.4 F 75 18 118/62 93 L 07/25/18 15:26 72 07/25/18 13:49 98.0 F 72 16 104/61 92 L 07/25/18 12:12 72 07/25/18 11:27 98.3 F 121 H 18 125/83 95 07/25/18 07:36 98.4 F 104 H 20 105/69 94 L 07/25/18 06:36 108 H Weight Weight 241 lb I&O: 07/24/18 07/25/18 07/26/18 06:59 06:59 06:59 Intake Total 1050 571 Output Total 200 Balance 1050 371 Result Diagrams: 07/25/18 06:00 07/25/18 06:00 Radiology Reviewed by me: Yes EKG Reviewed by me: Yes Phys Exam - Physical Examination Constitutional: NAD HEENT: PERRLA, moist MMs, sclera anicteric, oral pharynx no lesions Neck: no nodes, no JVD, supple, full ROM Respiratory: no wheezing, no rales, no rhonchi, clear to auscultation bilateral Cardiovascular: RRR, no significant murmur, no rub Gastrointestinal: soft, non-tender, no distention, positive bowel sounds Musculoskeletal: no edema, pulses present, edema present Neurological: non-focal, normal sensation, moves all 4 limbs Lymphatic: no nodes Psychiatric: normal affect, A&O x 3 Skin: no rash, normal turgor, cap refill <2 seconds Deviation from normal: Mild diffuse bruising noted Dx/Plan - Plan cont current plan of care, plan discussed w/ family, DVT proph w/SCDs * Dr Espinal performed successful cardioversion. * INR subtherapeutic this morning therefore Coumadin increased * Sotolol also increased to twice daily. Monitor EKG changes * Monitor closely over night * Pending patient progress, may likely be discharged tomorrow.
[2018-07-25] MEDS ORDERED: Warfarin Sodium 7.5 MG TAB PO SCH (16:30)
[2018-07-25] MEDS ORDERED: Warfarin Sodium 5 MG TAB PO SCH ×2 (17:00)
[2018-07-25] MEDS ORDERED: Amitriptyline HCl 100 MG TAB PO SCH (21:00)
[2018-07-25] MEDS ORDERED: Atorvastatin Calcium 10 MG TAB PO SCH ×3 (21:00)
[2018-07-25] MEDS: Sotalol HCl 80 MG TAB PO SCH (21:19)
--- NOTE | 2018-07-25 23:01 | ECHO ---
The patient is a 78-year-old woman with a history of atrial arrhythmias, status post ablation in [facility]. Now presented with a medium late recurrence. She is on sotalol 120 mg at home. PROCEDURE: The patient received propofol by Anesthesia specialist. After adequate sedation achieved, the standa rd transesophageal echogram probe was passed into the distal esophagus without difficulty. Patient t olerated the procedure well, no complications noted. RESULTS: The left atrium is moderately enlarged about 4.6 cm in the horizontal diameter. Left appendage is we ll visualized and contains no clots. Left atrial appendage velocities are adequate at 40-50 cm per s econd. Four out of four pulmonary veins are well seen. The interatrial septum is free of defect. The mitral valve without significant regurgitation. Left ventricular systolic function is preserved. Increased wall thickness is seen only. LV size is n ormal, otherwise. The right side chambers are nondilated. No ventricular septal defect visualized. The pericardial space has somewhat echo dense material, mostly adjacent to the right ventricle and co uld represent old now organizing pericardial effusion which is not in a liquid state any more. Fat pad cannot be completely ruled out. The aortic valve has three leaflets without regurgitation or stenosis. The visualized portion of the ascending and descending aorta is without aneurysm, dissection or signi ficant atheroma. CONCLUSION: 1. No intracardiac clots. 2. Normal left ventricular systolic function. 3. Trace mitral regurgitation and tricuspid regurgitation. No other significant valvular abnormalit ies noted. 4. Organizing pericardial effusion focalizing only by the right ventricle without evidence of any he modynamic compromise. PLAN: Proceed with cardioversion.
[2018-07-26 05:31] LABS: INR-International Normal Ratio 1.6; Prothrombin Time 19.3 SEC (12.0-14.7)
[2018-07-26] MEDS: Levothyroxine 150 MCG TAB PO SCH (06:16)
[2018-07-26] MEDS: FLUoxetine HCl 20 MG CAP PO SCH (08:22)
[2018-07-26] MEDS: Famotidine 20 MG TAB PO SCH (08:22)
[2018-07-26] MEDS: Sotalol HCl 80 MG TAB PO SCH (08:22)
--- NOTE | 2018-07-26 10:40 | PRG ---
DATE OF SERVICE: 07/26/2018 SUBJECTIVE: Ms. Augustine is doing well. She is awake and alert. No complaints. She states she had a good day yesterday and she feels "great." OBJECTIVE: VITAL SIGNS: Blood pressure 128/68, pulse 68 and regular. LUNGS: Clear. CARDIAC: Normal S1, normal S2. ABDOMEN: Soft, nontender. EXTREMITIES: No edema. ASSESSMENT: 1. Status post atrial flutter with cardioversion yesterday. 2. Being loaded with sotalol while she is here on the heart monitor. 3. Previous ablation. PLAN: 1. Per Dr. Espinal's recommendations, she will be kept in the hospital until tomorrow on sotalol 80 mg twice a day. 2. If she is doing well, can go home tomorrow to follow up with Dr. Bautista in approximately 1 wee k.
[2018-07-26 12:02] VITALS: BP 129/66; TEMP 98.3
[2018-07-26] MEDS ORDERED: Warfarin Sodium 5 MG TAB PO SCH (17:00)
--- NOTE | 2018-07-30 08:14 | EKG ---
Test Reason : Blood Pressure : / mmHG Vent. Rate : 120 BPM Atrial Rate : 120 BPM P-R Int : 000 ms QRS Dur : 082 ms QT Int : 300 ms P-R-T Axes : 118 004 188 degrees QTc Int : 424 ms Sinus tachycardia with 1st degree A-V block Abnormal ECG Confirmed by DR. Ramon RAMIREZ ([id number]) on 07/30/2018 8:14:27 AM Referred By: MATEO Confirmed By:DR. Ramon RAMIREZ
--- NOTE | 2018-07-30 08:15 | EKG ---
Test Reason : TIMED 2099 Blood Pressure : / mmHG Vent. Rate : 070 BPM Atrial Rate : 070 BPM P-R Int : 188 ms QRS Dur : 088 ms QT Int : 396 ms P-R-T Axes : 033 008 086 degrees QTc Int : 427 ms Normal sinus rhythm Nonspecific ST and T wave abnormality Abnormal ECG When compared with ECG of 25-JUL-2018 13:25, (Unconfirmed) No significant change was found Confirmed by DR. Ramon RAMIREZ ([id number]) on 07/30/2018 8:15:18 AM Referred By: Janae ARAIZA Confirmed By:DR. Ramon RAMIREZ
--- NOTE | 2018-07-30 08:15 | EKG ---
Test Reason : POST KERON/CARDIOVERSI Blood Pressure : / mmHG Vent. Rate : 072 BPM Atrial Rate : 072 BPM P-R Int : 188 ms QRS Dur : 088 ms QT Int : 378 ms P-R-T Axes : 026 -11 096 degrees QTc Int : 413 ms Normal sinus rhythm Nonspecific ST and T wave abnormality Abnormal ECG When compared with ECG of 24-JUL-2018 16:18, (Unconfirmed) Sinus rhythm has replaced Atrial fibrillation Vent. rate has decreased BY 47 BPM Nonspecific T wave abnormality now evident in Anterolateral leads Confirmed by DR. Ramon RAMIREZ ([id number]) on 07/30/2018 8:14:49 AM Referred By: [facility] Confirmed By:DR. Ramon RAMIREZ
--- NOTE | 2018-07-30 08:16 | EKG ---
Test Reason : SCHEDULE Blood Pressure : / mmHG Vent. Rate : 070 BPM Atrial Rate : 070 BPM P-R Int : 170 ms QRS Dur : 090 ms QT Int : 406 ms P-R-T Axes : -24 000 047 degrees QTc Int : 438 ms Normal sinus rhythm Low voltage QRS Nonspecific ST and T wave abnormality Abnormal ECG When compared with ECG of 25-JUL-2018 21:03, (Unconfirmed) No significant change was found Confirmed by DR. Ramon RAMIREZ ([id number]) on 07/30/2018 8:15:44 AM Referred By: EZIO Confirmed By:DR. Ramon RAMIREZ
== END 2018-07-26 15:40 | disposition home or self-care (01) ==
LOC: ERS 16:13 → 2SW 20:45
PROVIDERS: ADMIT Internal Medicine; ATTEND Internal Medicine
PROC: 5A2204Z Restoration of Cardiac Rhythm, Single (ICD-10-PCS; principal; 2018-07-25)
DX: I48.4 Atypical atrial flutter (principal); I48.0 Paroxysmal atrial fibrillation; E78.5 Hyperlipidemia, unspecified; I10 Essential (primary) hypertension; Z86.73 Personal history of transient ischemic attack (TIA), and cerebral infarction without residual deficits; Z79.01 Long term (current) use of anticoagulants; Z79.899 Other long term (current) drug therapy
CPT/HCPCS: 71046; 80048; 80053; 82550; 82553; 84443; 84484 ×2; 85025 ×2; 85610 ×2; 85730; 92960; 93005 ×3; 93312; 96361 ×2; 96374; 96376; 99285; G0378 ×2; 36415; 93010; 96360; J1160; J2704; Q0162

== ENCOUNTER 2018-08-03 00:11 | Inpatient (IN) | payer MEDICARE ==
[2018-08-03] MEDS ORDERED: Acetaminophen 500 MG TAB ONE (01:24)
[2018-08-03] MEDS ORDERED: Metoprolol Tartrate 25 MG TAB ONE (01:24)
[2018-08-03 01:25] LABS: #Basophils 0.1 thou/uL (0.0-0.2); #Eosinphils 0.3 thou/uL (0.0-0.7); #Lymphocytes 2.2 thou/uL (1.20-3.40); #Monocytes 0.8 thou/uL (0.11-0.59); %Eosinophils 3.6 % (0.0-10.0); %Lymphocytes 26.4 % (21.0-51.0); %Monocytes 9.5 % (0.0-10.0); %Neutrophils 59.5 % (42.0-75.0); Hemoglobin 16.3 g/dL (12.0-16.0); Mean Corpuscular HGB CONC 33.9 g/dL (32.0-36.0); Mean Corpuscular Hemoglobin 32.8 pg (27.0-31.0); Mean Corpuscular Volume 96.9 fL (78.0-98.0); Mean Platelet Volume 8.5 fL (7.4-10.4); Platelet Count 214 thou/uL (130-400); Red Blood Cell (RBC) Count 4.96 mill/uL (4.20-5.40); White Blood Cell (WBC) Count 8.4 thou/uL (4.8-10.8)
[2018-08-03] MEDS ORDERED: Metoprolol Tartrate 5 MG/5 ML VIAL ONE ×3 (01:27→03:06)
[2018-08-03 01:31] LABS: INR-International Normal Ratio 1.9; Prothrombin Time 22.1 SEC (12.0-14.7)
[2018-08-03 01:53] LABS: ALT (SGPT) 20 U/L (8-55); AST (SGOT) 29 U/L (5-34); Alkaline Phosphatase 131 U/L (40-150); Anion Gap 17 mmol/L (10-20); BUN (Urea Nitrogen) 23 mg/dL (9.8-20.1); Bilirubin, Total 0.4 mg/dL (0.2-1.2); CK (CPK) 36 U/L (29-168); Calc. Creatinine Clearance 0 mL/min (70-130); Calcium 9.3 mg/dL (7.8-10.44); Carbon Dioxide 22 mmol/L (23-31); Chloride 104 mmol/L (98-107); Estimated GFR-MDRD 47; Globulin 3.5 g/dL (2.4-3.5); Glucose 86 mg/dL (83-110); Potassium 5.2 mmol/L (3.5-5.1); Protein, Total 7.5 g/dL (6.0-8.3); Sodium 138 mmol/L (136-145)
[2018-08-03 01:57] LABS: CKMB 1.1 ng/mL (0-6.6); Troponin I Less than 0.010 ng/mL (< 0.028)
[2018-08-03] MEDS ORDERED: Diltiazem 125 MG/25 ML ONE (03:56)
[2018-08-03 05:07] LABS: Troponin I Less than 0.010 ng/mL (< 0.028)
[2018-08-03] MEDS ORDERED: Ondansetron PF 4 MG/2 ML Vial IVP PRN (05:51)
[2018-08-03] MEDS ORDERED: Acetaminophen 325 MG TAB PO PRN (05:51)
[2018-08-03] MEDS ORDERED: HYDROcodone/Acetaminophen 5/325 mg Tablet PO PRN ×2 (05:51)
[2018-08-03] MEDS ORDERED: Ondansetron ODT 4 MG TAB SL PRN (05:51)
[2018-08-03 05:56] VITALS: BMI 39.2
[2018-08-03] MEDS ORDERED: Levothyroxine 150 MCG TAB PO SCH (07:45)
[2018-08-03] MEDS: Enoxaparin Sodium 120 MG/0.8 ML SYRINGE SC SCH ×2 (07:46→21:12)
[2018-08-03 08:09] LABS: Troponin I Less than 0.010 ng/mL (< 0.028)
[2018-08-03 08:33] LABS: Free T4 (Free Thyroxine) 1.02 ng/dL (0.70-1.48); Thyroid Stimulating Hormone 4.3427 uIU/mL (0.35-4.94)
--- NOTE | 2018-08-03 08:35 | RAD ---
CHEST UPRIGHT PORTABLE 1 VIEW: HISTORY: A 78-year-old female with a history of chest pain, atrial fibrillation, and headache. COMPARISON: 07/24/2018. FINDINGS: Postop9 changes of the cervical spine and lumbar spine. Left ICD. Left shoulder arthroplasty. No c onfluent pneumonia, overt edema, or pleural effusion. IMPRESSION: No acute intrathoracic disease. POS: [facility]
[2018-08-03] MEDS ORDERED: Furosemide 20 MG TAB PO SCH (09:00)
[2018-08-03] MEDS ORDERED: Enoxaparin Sodium 120 MG/0.8 ML SYRINGE SC SCH (09:00)
[2018-08-03] MEDS: FLUoxetine HCl 20 MG CAP PO SCH (09:09)
--- NOTE | 2018-08-03 10:32 | HP ---
DATE OF SERVICE: 08/03/2018 CHIEF COMPLAINT: Palpitations. HISTORY OF PRESENT ILLNESS: The patient is a 78-year-old female with recurrent history of atrial fibrillation/atrial flutter. She was just hospitalized in our hospital few days ago and she h ad cardioversion done at this time and also she had ablation done [address] Bateman, and she was placed on sotalol after the cardioversion and atrial fibrillation/atrial flutter came back. She denies any chest pain with some shortness of breath on exertion. PAST MEDICAL HISTORY: Positive for: 1. Atrial fibrillation/atrial flutter. 2. Hyperlipidemia. 3. Hypertension. 4. Transient ischemic attack. 5. Status post pacemaker. PAST SURGICAL HISTORY: 1. Cholecystectomy. 2. Hysterectomy. 3. Bilateral knee replacement. 4. Left shoulder surgical repair. 5. Lumbar and cervical surgeries. FAMILY HISTORY: Her father of leukemia and mother had heart trouble and she in her 70s. ALLERGIES: None. MEDICATIONS: Sotalol 80 mg twice a day, warfarin 7.5 mg once a day, omeprazole 20 mg once a day, ami triptyline 100 mg at bedtime, atorvastatin 10 mg at bedtime, levothyroxine 150 mcg every morning, paty ndronate 70 mg once a week, cholecalciferol, which is vitamin D3 1000 units once a day, and potassium chloride 60 mEq once a day, furosemide 20 mg twice a day, fluoxetine 20 mg once a day, carvedilol 1 2.5 mg twice a day, and tramadol 50 mg q.4. p.r.n. for the pain as needed. SOCIAL HISTORY: She denies any cigarette smoking. She drinks occasionally one glass of wine a day. She denies any illicit drug use. REVIEW OF SYSTEMS: All systems were reviewed and they were negative, only positive for those which a re mentioned at HPI. PHYSICAL EXAMINATION: VITAL SIGNS: Blood pressure is 103/69, pulse is 67, respiratory rate is 18, O2 saturation is 96% on room air, temperature is 97.8. She is an obese lady. Her weight is 243 pounds. GENERAL: She is not in any distress, but she states that she feels that palpitations which time when it happens. HEENT: Head is atraumatic and normocephalic. Eyes are PERRLA. Sclerae nonicteric. Conjunctivae pi nkish. Oral mucosa is dry. NECK: Supple, no lymphadenopathy. Thyroid is not palpable. LUNGS: Clear. HEART: S1 and S2, irregularly irregular. No S3, no S4. ABDOMEN: Obese, nontender, and nondistended. EXTREMITIES: No clubbing or cyanosis. There is 1+ peripheral edema similar bilateral on lower extre mities. NEUROLOGIC: She is alert and oriented x4. There is not any sensorimotor deficits present. Cranial nerves are intact. LABORATORY AND X-RAY FINDINGS: Showed white count of 8.4, hemoglobin 16.3, hematocrit 48.0, and plat elet count is 214. INR 1.9, PT 22.1. Sodium 130, potassium 5.2, chloride 104, CO2 of 22, BUN 23, cr eatinine 1.13. BNP 218. Two sets of troponins negative. CK-MB 1.1 and creatinine kinase 36. The r est of chemistry within normal limits. IMAGING DATA: Her EKG showed atrial fibrillation with ventricular response, 120 beats per minute. C hest x-ray was done and it was personally reviewed by me and it showed pacemaker in place, no acute i ntrathoracic cardiovascular disease. IMPRESSION: 1. Recurrent atrial fibrillation/atrial flutter, status post ablation 3 months ago and status post c ardioversion recently. 2. Hyperkalemia that is related to her high dose of potassium she is taken. She is on 60 mEq once a day. 3. Renal insufficiency. This is probably related to her diuretic. She is on Lasix 20 mg twice a da y. 4. Hyperlipidemia. 5. Hypertension. 6. History of transient ischemic attack. 7. Coronary artery disease. 8. Status post pacemaker. 9. Hypothyroidism. PLAN: Full admission to library monitor floor. Condition is fair. Activity is bed rest and bathr oom privileges. IV Hep-Lock. She was started on Cardizem drip in the emergency room and she was giv en 3 doses of metoprolol tartrate. Her heart rate is down below 100. We will continue 5 mg of Cardi zem drip per hour, hold. We will get Cardiology consultation since this case is quite complicated, i t is a recurrent problem. I personally talked to Dr. Rouse about this patient. We will continue her PT and INR daily and her INR was 1.9 this morning. We will put her on Lovenox 110 mg subcutaneously every 12 hours. We will hold her Coumadin at this point since we do not know whether she is going to have any procedure done any time today. This is going to be up to microbiology technologist. I am going to hold her potassium and Lasix. We will continue her atorvastatin, amitriptyline, omeprazole, fluoxetine. I will hold also Coreg, furosemide, as I mentioned above, potassium chloride, alendronate, warfarin, and sotalol.
[2018-08-03] MEDS: Digoxin 0.5 MG/2 ML AMP SLOW IVP SCH ×4 (16:08→22:57)
[2018-08-03] MEDS ORDERED: Sodium Chloride 0.9% 10 ML ONE ×2 (20:50→22:44)
[2018-08-03] MEDS: traMADol HCl 50 MG TAB PO PRN (21:10)
[2018-08-03] MEDS: Amitriptyline HCl 100 MG TAB PO SCH (21:12)
[2018-08-03] MEDS: Atorvastatin Calcium 10 MG TAB PO SCH (21:12)
[2018-08-03] MEDS ORDERED: Sotalol HCl 80 MG TAB PO SCH (22:00)
--- NOTE | 2018-08-04 04:29 | CON ---
DATE OF CONSULTATION: 08/03/2018 ROOM NUMBER: [id number] PRIMARY CARE PHYSICIAN: HAN Hernandez PRIMARY POTATO BUCKER: Suresh Bautista M.D. REFERRING PHYSICIAN: Shane Campbell M.D. REASON FOR CARDIOLOGY CONSULTATION: Recurrent atrial fibrillation with rapid ventricular response. HISTORY OF PRESENT ILLNESS: Ms. Augustine is 78 years old female with a significant long hist ory of atrial fibrillation with status post cardioversion and ablation and hyperlipidemia, hypertensi on, and a CVA and pacemaker placement and coronary artery disease. The patient presents to the emerg ency department today for the heart tracing and the patient was found to have the heart rate in the 1 30s-140s at the ER. Diltiazem drip was started at the ER and the patient's heart rate was well contr olled. This afternoon when patient's Cardizem was stopped due to hypotensive since she has not been on any beta dutch and the patient's heart rate went up to 110s to 120s since this evening. The pat ient is complaining of pressure to the right neck and the headache when she has elevated heart rate. The patient denied any chest pain or discomfort or shortness of breath or any other complaints. The patient has status post elective pulmonary venous isolation ablation on 04/24/2018. The patient had a cardioversion on 07/25/2018. The patient had echocardiogram that was done in 02/2018 with EF 5 5%-60%, moderate left atrial enlargement, moderate aortic valve regurgitation, moderate aortic valve stenosis, moderate tricuspid regurgitation, mild mitral valve regurgitation, and grade 1 diastolic dy sfunction. The patient's last time follow up with Dr. Bautista's office in the 05/14/2018. The [facility] ient had a carotid Doppler study in 10/2016 shows no significant stenosis. The patient has CT angio of the chest showing coronary artery calcification and coronary artery anatomy appeared normal with p atient being very . There is no evidence of proximal pulmonary embolism. PAST MEDICAL HISTORY: Atrial fibrillation, atrial flutter, status post ablation in 04/2016, hyperten crista, hyperlipidemia, cerebrovascular accident, status post pacemaker placement, generator change in 05/2018. PAST SURGICAL HISTORY: 1. Pacemaker placement. 2. Cholecystectomy. 3. Hysterectomy. 4. Bilaterally knee replacement. 5. Left shoulder surgical repair. 6. Lumbar and cervical surgeries. FAMILY HISTORY: The patient's father due to leukemia. The patient's mother due to cardiac related disease at the age of 70s. SOCIAL HISTORY: Positive for alcohol intake. Negative for illicit drug or tobacco abuse. ALLERGIES: No known drug allergies. MEDICATIONS: Omeprazole 20 mg once a day, Elavil 100 mg at night, atorvastatin 10 mg once a day, lev othyroxine 150 mcg once a day, alendronate 70 mg every 7 days, vitamin D3 of 2000 units at night, pot assium chloride 60 mEq every morning, Lasix 20 mg twice a day, Prozac 20 mg once a day, carvedilol 12 .5 mg twice a day, tramadol 50 mg every 4 hours as needed, sotalol 80 mg twice a day, Coumadin 7.5 mg once a day. REVIEW OF SYSTEMS: Review of systems was negative, unless otherwise mentioned in the HPI. PHYSICAL EXAMINATION: VITAL SIGNS: Blood pressure 137/85, pulse is 85, temperature 98.2, respiratory rate 16, O2 sat 95% w ith room air. GENERAL: The patient is alert, oriented x4, not in acute distress. The patient complained of the pr essure-like pain to right neck and headache. HEENT: Head: Normocephalic, atraumatic. Eyes: Extraocular muscles are intact. ENT: Oral and juan al mucosa are moist without lesion. NECK: Supple, normal range of motion. No JVD. RESPIRATORY: Clear to auscultate bilaterally. No wheezing, rales or rhonchi noted. CARDIAC: Irregularly irregular. Normal S1, S2. EXTREMITIES: 2+ pulses in the upper extremities and 1 to 2+ pulses in the bilateral lower extremitie s. No edema. ABDOMEN: Soft, nontender or mass to palpate. Bowel sounds are present. MUSCULOSKELETAL: The patient able to move all extremities. The patient denied claudication. SKIN: Warm and dry. No lesions or bruise, rash noted. PSYCHIATRIC: The patient's mood is appropriate. NEUROLOGIC: The patient is alert x4, nonfocal. At this moment, the patient's telemetry record showed patient's atrial fibrillation is in the 110s to 120s. LABORATORY DATA: WBC 8.4, hemoglobin 6.3, hematocrit 48.0, platelet 214. PT . INR 1.9. Sodiu m 138, potassium 5.2, BUN 23, creatinine 1.13, glucose 86, AST 29, ALT 20, creatine kinase is 36. Tr oponin is negative. BNP is 218. TSH 4.3427 and free T4 1.02. The patient's chest x-ray shows no ac [place] intrathoracic disease. ASSESSMENT AND PLAN: 1. Recurrent atrial fibrillation with rapid ventricular response. The patient is going to receive t he digoxin total 1 gram IV and then we are going to start 0.125 mg once a day. Patient's sotalol 80 mg twice a day will be resumed from [facility] and we would like to request EP consult for further atria l fibrillation management. The patient on Lovenox at this moment twice a day for anticoagulants. 2. Hypertension. The patient's blood pressure is stable at this moment, we would like to continue t o monitor. 3. Status post pacemaker. The patient's last interrogation as outpatient is the normal. 4. Hyperlipidemia. The patient is on statin at this moment. 5. History of the transient ischemic attack. The patient's condition is stable at this moment, we w ould like to continue to monitor. The patient on the Lovenox twice a day. Thank you very much for allowing the Cardiology Service to participate of the care of this patient. We will follow along the patient care team and make a further evaluation as appropriate.
[2018-08-04 05:38] LABS: INR-International Normal Ratio 2.3; Prothrombin Time 24.9 SEC (12.0-14.7)
[2018-08-04 05:53] LABS: Anion Gap 14 mmol/L (10-20); BUN (Urea Nitrogen) 22 mg/dL (9.8-20.1); Calc. Creatinine Clearance 76 mL/min (70-130); Calcium 9.2 mg/dL (7.8-10.44); Carbon Dioxide 24 mmol/L (23-31); Chloride 106 mmol/L (98-107); Estimated GFR-MDRD 49; Glucose 99 mg/dL (83-110); Sodium 139 mmol/L (136-145)
[2018-08-04] MEDS: Levothyroxine 150 MCG TAB PO SCH (06:09)
--- NOTE | 2018-08-04 08:16 | ADD-CON ---
ADDENDUM: DATE OF CONSULTATION: 08/03/2018 CARDIOLOGY NOTE Please refer to the notes already dictated by my nurse practitioner. We have seen and discussed this patient for the past medical history, social history, family history, review of systems, medications and allergies. Please refer to the notes dictated by the nurse practitioner. INDICATION FOR CONSULTATION: A 78-year-old female with intermittent atrial fibrillation. She has un dergone ablations in the past. She has had electrical cardioversion. She believe she was [facility] a week [facility] with similar episode of atrial fibrillation with rapid ventricular res ponse, where she underwent again an electrical cardioversion. She has undergone ablation in the past . She has been on her medications. She has now stopped taking the medication. She states she has b een on Coreg as well as sotalol for her atrial fibrillation. She presented again today as the heart rate started last night or yesterday evening was an increased heart rate in the irregular rhythm when it comes in atrial fibrillation, she knows she does have some discomfort in her chest with some tigh tness and also which radiates to the right area. She has not had any cardiac catheterization that brielle can recall, but she has had, I believe stress testing in the past, but nothing recently. At this t raquel, she has continued to have the atrial fibrillation. She has been given IV diltiazem and unfortun ately, she continues to have the atrial fibrillation with rapid ventricular response. She was given diltiazem and then had hypotension. We will reinstate the sotalol at this time and will continue wit h the digoxin to see whether or not we can get better rate control. She has had a pacemaker insertio n in the past. She may need to undergo an AVJ ablation and then have an upgrade of her pacemaker to a biventricular device if we are unable to control during a rapid heart rate. She has also had a CVA in the past, which may have been associated with her atrial fibrillation. PHYSICAL EXAMINATION: GENERAL: Reveals a well-developed, well-nourished female in no acute distress. She is alert and tiffany ented. VITAL SIGNS: Stable except for the tachycardia. She 104-122 beats per minute. At this time, respiratory rate 16, O2 saturation 95%, blood pressure 137/79. Earlier, she did have hypotension ass ociated with the diltiazem and was down to 83/64. At this time, she is more stable, we may need to a dd additional diltiazem at lower dose if she continues to be tachycardic despite the beta blockers, s otalol, and digoxin. We will reinstate the sotalol this evening. HEENT: Shows the head to be normocephalic and atraumatic. Carotid pulses are present. I cannot hea r any bruits. CHEST: Clear to auscultation. There were no significant rales, rhonchi or wheezing noted. CARDIOVASCULAR: Exam reveals a tachycardia with an irregularly irregular rhythm. I did not hear any gross murmurs. ABDOMEN: Shows morbid obesity. Positive bowel sounds are present. EXTREMITIES: Showed no clubbing or cyanosis. She has had a partial toe or amputation of the left fo ot. She has had some surgery done on the right foot. She does not have any significant edema. I ca nnot palpate pedal pulses. NEUROLOGIC: She appears to be intact. IMPRESSION: 1. Recurrent atrial fibrillation with rapid ventricular response, which has been difficult to contro l by medical management. She has also had an ablation. She has a pacemaker insertion. We will need to continue the beta blockers and hopefully, she will maintain her blood pressure. We will ask Elec trophysiology to see her again in consultation and see if they have any other additional input in thi s lady who has been in and out of the hospital now twice in the last 10 days, less than 10 days for t his atrial fibrillation and rapid ventricular response. 2. History of coronary artery disease, but again she has no history of having a cardiac catheterizat ion in the past that she may eventually need to undergo cardiac catheterization to rule out evidence for underlying coronary artery disease. I do not see any significant EKG changes with the tachycardi a during the rapid ventricular response of the atrial fibrillation. Further care of the patient will be by Dr. Bautista when he sees the patient tomorrow.
[2018-08-04] MEDS: Digoxin 0.125 MG TAB PO SCH (09:11)
[2018-08-04] MEDS: Enoxaparin Sodium 120 MG/0.8 ML SYRINGE SC SCH (09:11)
[2018-08-04] MEDS: FLUoxetine HCl 20 MG CAP PO SCH (09:11)
[2018-08-04] MEDS: Sotalol HCl 80 MG TAB PO SCH ×2 (09:11→21:05)
[2018-08-04] MEDS: traMADol HCl 50 MG TAB PO PRN ×2 (09:14→18:44)
--- NOTE | 2018-08-04 11:11 | PDOC.PN ---
- Subjective Encounter Start Date: 08/04/18 Encounter Start Time: 11:09 Mr. Garcia was seen today in follow of of AFIB with RVR. She says she gets a little winded when she gets up to walk, otherwise no complaints. - Objective MAR Reviewed: Yes Vital Signs & Weight: Vital Signs (12 hours) Temp Pulse Resp BP Pulse Ox 08/04/18 07:43 97.7 F 85 16 100/70 08/04/18 06:09 98 F 08/04/18 03:19 99.8 F H 107 H 17 110/65 93 L 08/04/18 00:00 121 H 16 109/72 Weight Weight 240 lb 4.8 oz I&O: 08/03/18 08/04/18 08/05/18 06:59 06:59 06:59 Intake Total 970 Output Total 450 Balance 520 Result Diagrams: 08/03/18 01:01 08/04/18 04:38 Phys Exam - Physical Examination HEENT: PERRLA Respiratory: no wheezing, no rales, no rhonchi, clear to auscultation bilateral Cardiovascular: no significant murmur, no rub, irregular Gastrointestinal: soft, non-tender, no distention, positive bowel sounds Musculoskeletal: no edema Neurological: non-focal Dx/Plan (1) Atrial fibrillation Code(s): I48.91 - UNSPECIFIED ATRIAL FIBRILLATION Status: Acute (2) Hypertension Code(s): I10 - ESSENTIAL (PRIMARY) HYPERTENSION Status: Chronic (3) Chronic anticoagulation Code(s): Z79.01 - MILK CONDENSER (CURRENT) USE OF ANTICOAGULANTS Status: Acute - Plan * AFIB with RVR- her heart rate is controlled with Sotalol, and Digoxin for now * She has been seen by Dr. Espinal who plans an ablation tomorrow * HTN-blood pressure is controlled. * Chronic anticoagulation- coumadin is on hold- INR was 2.3 today- She is currently receiving Lovenox full dose
[2018-08-04] MEDS: Acetaminophen 325 MG TAB PO PRN (11:16)
[2018-08-04] MEDS ORDERED: Warfarin Sodium 7.5 MG TAB PO SCH (18:30)
[2018-08-04] MEDS ORDERED: Apixaban 5 MG TAB PO SCH (21:00)
[2018-08-04] MEDS ORDERED: Sodium Chloride 0.9% 10 ML ONE (21:02)
[2018-08-04] MEDS: Atorvastatin Calcium 10 MG TAB PO SCH (21:05)
[2018-08-04] MEDS: Amitriptyline HCl 100 MG TAB PO SCH (21:06)
[2018-08-05] MEDS: traMADol HCl 50 MG TAB PO PRN ×3 (00:16→22:21)
[2018-08-05] MEDS: Levothyroxine 150 MCG TAB PO SCH (06:01)
[2018-08-05] MEDS: Sotalol HCl 80 MG TAB PO SCH ×2 (06:01→20:39)
[2018-08-05 06:14] LABS: INR-International Normal Ratio 1.7; Prothrombin Time 20.4 SEC (12.0-14.7)
[2018-08-05 06:33] LABS: Anion Gap 12 mmol/L (10-20); BUN (Urea Nitrogen) 25 mg/dL (9.8-20.1); Calc. Creatinine Clearance 67 mL/min (70-130); Calcium 9.5 mg/dL (7.8-10.44); Carbon Dioxide 29 mmol/L (23-31); Chloride 105 mmol/L (98-107); Estimated GFR-MDRD 42; Glucose 93 mg/dL (83-110); Potassium 6.3 mmol/L (3.5-5.1); Sodium 140 mmol/L (136-145)
[2018-08-05] MEDS ORDERED: Lidocaine 1% (PF) 30 ML VIAL ONE (06:37)
[2018-08-05] MEDS ORDERED: Heparin 10,000 UNITS/1 ML VIAL ONE ×2 (07:02→09:30)
--- NOTE | 2018-08-05 08:22 | CON ---
DATE OF CONSULTATION: 08/04/2018 ELECTROPHYSIOLOGY CONSULTATION REPORT REFERRING PHYSICIAN: Dr. Rouse. I am seeing Mrs. Augustine at our [facility] telemetry floor as an electrophysiology direct response consultant. Her problems are: 1. Recurrent atrial arrhythmias. A. Prior history of drug-refractory atrial fibrillation, status post ablation in 04/2018 including isolation of all 4 pulmonary veins and posterior wall. B. Atypical atrial flutter, recurrent, requiring sotalol and cardioversion on 07/25/2018. C. Now recurrent atrial flutter on higher dose of sotalol as well. 2. CHADS-VASc score of 5 with history of transient ischemic attack, also age, gender, and hypertension. 3. History of preserved LVEF. Based on our KERON report on 07/25/2018, trace MR. 4. Organizing pericardial effusion, focalizing by the RV on KERON noted. ALLERGIES: None noted. MEDICATIONS AT HOME: Included warfarin, omeprazole, amitriptyline, Lipitor, levothyroxine, alendronate, cholecalciferol, potassium chloride, furosemide, fluoxetine, carvedilol, tramadol, sotalol 80 mg twice a day. SUBJECTIVE: Ms. Augustine is here due to recurrent palpitations. She has had a recent KERON-guided cardioversion on 07/25/2018 and since she did good, but just 2 days ago, she started feeling palpitations, rapid rates, but she denies dyspnea, chest pains. She did not pass out. No stroke-like symptoms are noted. Rest of 12-point system are, otherwise, unremarkable. Now, she is feeling better after rate control. OBJECTIVE DATA: VITAL SIGNS: Blood pressure is 100/70, heart rate 122, respirations 18, temperature 97.4 degrees Fahrenheit. GENERAL: This is an alert and oriented woman in no apparent distress. NECK: Supple. Jugular veins not distended. CHEST: Coarse without crackles. CARDIOVASCULAR: Heart sounds are regular to rate and rhythm. No murmur, rub, or gallop. ABDOMEN: Benign. Bowel sounds positive. EXTREMITIES: Lower extremities without edema, clubbing, or cyanosis. DATABASE: The EKGs reviewed revealing atrial flutter cannot rule out typical CTI dependent morphology. LABORATORY DATA: White cells 8.4, hemoglobin 16.3, platelet count is 214. INR is therapeutic at 2.3. The sodium 139, potassium 5, BUN is 22, creatinine 1.08. BNP is 218. ASSESSMENT AND PLAN: Ms. Augustine is a pleasant 78-year-old woman with prior history of recurrent atrial arrhythmias, prior pulmonary venous isolation procedure in April. She required sotalol for rhythm suppression, but has had recurrence of an atrial flutter despite of cardioversion and increasing her dose to 80 mg twice a day couple weeks ago. We discussed the treatment options. At this point, we could consider increasing her sotalol and re- cardioverting her, although recurrences still cannot be ruled out. She would rather have another attempt to her ablation procedure, possibly expedited hence family issues. We discussed the pros and cons about this approach. We will try to schedule her at a near date. Hence, she is well anticoagulated KERON is not necessary. I will likely continue her on the warfarin throughout her procedure to minimize her risk of stroke. History of moderate pericardial effusion by KERON 2 weeks ago - likley chronic organizing pericardial effusion. At this point, not hemodynamically significant. WIll reevaluate with ICE catheter during case. Continue rate control with diltiazemin the internim. MTDD
[2018-08-05] MEDS ORDERED: PHENYLEPHRINE-NS 100 MCG/ML 10 ML SYRINGE ONE ×2 (08:37→16:23)
[2018-08-05] MEDS ORDERED: DOPamine 400 MG/D5W 250 ML 250 ML ONE (09:30)
[2018-08-05] MEDS ORDERED: Promethazine HCl 25 MG/ML VIAL IM PRN (10:23)
[2018-08-05] MEDS ORDERED: Ondansetron HCl/PF 4 MG/2 ML Vial IVP PRN (10:23)
[2018-08-05] MEDS ORDERED: Promethazine HCl 25 MG/ML VIAL SLOW IVP PRN (10:23)
--- NOTE | 2018-08-05 10:47 | OP ---
DATE OF PROCEDURE: 08/05/2018 PROCEDURE: Electrophoresis study and radiofrequency ablation. SURGEON: Dr. Ryan Espinal REASON FOR PROCEDURE: Ms. Augustine is a 78-year-old woman with prior history of atrial fibrillation who underwent pulmonary venous isolation procedure in April by Dr. Bateman. She has recurrent atrial flutter. Cardioversion performed 3 weeks ago, had recurrence. Here for radiofrequency ablation. PROCEDURE: The patient received general sedation by Anesthesia specialist. After adequate level of sedation achieved, the left and right femoral vein was anesthetized using subcutaneous lidocaine. With ultrasound guidance, both veins were cannulated x2. The left-sided veins were used to advance the [place] short sheaths through which an intracardiac catheter was used to monitor effusion and adequate position throughout the case. A long sheath was also introduced through the left side using this to advance a Duodeca catheter to the CS and the right atrial position. Throughout the case careful attention was paid not to dislodge the permanent pacemaker lead. The basic EP study revealed atrial flutter, appeared to be typical isthmus- dependent in morphology with proximal to lateral CS activation. Post-pacing in the proximal CS were shorter, close to tachycardia cycle length, also isthmus pacing was recording tachycardia cycle length about 280 milliseconds. Following that, a decision was made to proceed with cavotricuspid isthmus ablation. CT ablation prolong with tachycardia cycle length. Eventually the tachycardia was shocked terminated. The further ablation lesion was placed with proximal CS pacing to ensure transisthmus prolongation over 180 milliseconds. Trans-isthmus block was demonstrated by longest trans-isthmus time adjacent to the cavotricuspid isthmus line. Following that, burst atrial pacing was performed, but we were not able to induce atrial flutter or fibrillation. The dopamine was administered and the line was rechecked and any additional reconnections were ablated. Ice catheter monitoring was performed throughout. Even before placing electrodes, ice catheter did reveal moderate pericardial effusion, mostly by the right ventricle. This has not changed with the ablation procedure. Cardiac silhouette also was unchanged. Initially lower blood pressures were corrected with fluid boluses and also with vasopressin in the end of the case. Blood pressure still remains borderline, but able to resolve with pressors. No definite change in cardiac silhouette is noted. CONCLUSION: 1. Successful cavotricuspid isthmus ablation. 2. No induction of the atrial flutter post-ablation. PLAN: Continue monitoring. Continue anticoagulation. MTDD
[2018-08-05] MEDS: Digoxin 0.125 MG TAB PO SCH (14:23)
[2018-08-05] MEDS: FLUoxetine HCl 20 MG CAP PO SCH (14:24)
[2018-08-05] MEDS ORDERED: Succinylcholine Chloride 20 MG/ML 10 ml SYRINGE FS ONE (16:23)
[2018-08-05] MEDS ORDERED: Lidocaine 1% PF 5 ML VIAL ONE (16:23)
[2018-08-05] MEDS ORDERED: ePHEDrine/0.9% NaCl/PF SYRINGE 50 mg/10 ml ONE (16:23)
[2018-08-05] MEDS ORDERED: PROPOFOL 200 MG/20 ML VIAL ONE (16:23)
[2018-08-05] MEDS ORDERED: Warfarin Sodium 7.5 MG TAB PO SCH (17:00)
--- NOTE | 2018-08-05 17:18 | PDOC.PN ---
- Subjective Encounter Start Date: 08/05/18 Encounter Start Time: 17:16 Ms. Augustine was seen today in follow-up of AFIB/Aflutter. She is post ablation, and does not have any complaints. she denies any shortness of breath. - Objective MAR Reviewed: Yes Vital Signs & Weight: Vital Signs (12 hours) Temp Pulse Resp BP BP Pulse Ox 08/05/18 17:01 97.7 F 82 18 96 08/05/18 11:45 97.5 F L 81 20 108/67 96 08/05/18 06:00 109 H 20 101/71 Weight Weight 241 lb 1.6 oz I&O: 08/04/18 08/05/18 08/06/18 06:59 06:59 06:59 Intake Total 970 1570 Output Total 450 1651 Balance 520 -81 Result Diagrams: 08/03/18 01:01 08/05/18 04:49 Phys Exam - Physical Examination HEENT: PERRLA Respiratory: no wheezing, no rales, no rhonchi, clear to auscultation bilateral Cardiovascular: RRR, no significant murmur, no rub Gastrointestinal: soft, non-tender, no distention, positive bowel sounds Musculoskeletal: no edema Dx/Plan (1) Atrial fibrillation Code(s): I48.91 - UNSPECIFIED ATRIAL FIBRILLATION Status: Acute (2) Hypertension Code(s): I10 - ESSENTIAL (PRIMARY) HYPERTENSION Status: Chronic (3) Chronic anticoagulation Code(s): Z79.01 - CARD CLEANER (CURRENT) USE OF ANTICOAGULANTS Status: Acute (4) Hyperkalemia Code(s): E87.5 - HYPERKALEMIA Status: Acute - Plan * AFIB- she is s/p ablation and feels fine- will monitor overnight * Continue coumadin for CVA prophylaxis * Hyperkalemia- will re-check potassium, and treat if still elevated.Celery Stripper consult for low potassium diet * HTN- blood pressure is controlled * Home in AM
[2018-08-05 17:40] LABS: Potassium 4.5 mmol/L (3.5-5.1)
[2018-08-05] MEDS: Atorvastatin Calcium 10 MG TAB PO SCH (20:38)
[2018-08-05] MEDS: Amitriptyline HCl 100 MG TAB PO SCH (20:38)
[2018-08-06] MEDS: Acetaminophen 325 MG TAB PO PRN (00:45)
[2018-08-06] MEDS: traMADol HCl 50 MG TAB PO PRN ×2 (03:05→09:19)
[2018-08-06 05:20] LABS: Anion Gap 12 mmol/L (10-20); BUN (Urea Nitrogen) 19 mg/dL (9.8-20.1); Calc. Creatinine Clearance 83 mL/min (70-130); Calcium 8.3 mg/dL (7.8-10.44); Carbon Dioxide 22 mmol/L (23-31); Chloride 108 mmol/L (98-107); Estimated GFR-MDRD 54; Glucose 103 mg/dL (83-110); Potassium 4.4 mmol/L (3.5-5.1); Sodium 138 mmol/L (136-145)
[2018-08-06 05:32] LABS: Prothrombin Time 22.7 SEC (12.0-14.7)
[2018-08-06] MEDS: Levothyroxine 150 MCG TAB PO SCH (05:35)
[2018-08-06] MEDS: Digoxin 0.125 MG TAB PO SCH (09:18)
[2018-08-06] MEDS: FLUoxetine HCl 20 MG CAP PO SCH (09:18)
[2018-08-06] MEDS: Sotalol HCl 80 MG TAB PO SCH (09:18)
--- NOTE | 2018-08-06 09:31 | PDOC.PN ---
- Subjective Encounter Start Date: 08/06/18 Encounter Start Time: 09:30 Ms. Garcia was seen today in follow-up - Objective MAR Reviewed: Yes Vital Signs & Weight: Vital Signs (12 hours) Temp Pulse Resp BP BP Pulse Ox 08/06/18 07:54 98.2 F 84 16 109/55 L 95 08/06/18 04:00 98.1 F 86 21 H 111/55 L 91 L Weight Weight 242 lb 11.2 oz I&O: 08/05/18 08/06/18 08/07/18 06:59 06:59 06:59 Intake Total 1570 1840 Output Total 1651 1025 Balance -81 815 Result Diagrams: 08/03/18 01:01 08/06/18 04:48 Phys Exam - Physical Examination HEENT: PERRLA Respiratory: no wheezing, no rales, no rhonchi, clear to auscultation bilateral Cardiovascular: RRR, no significant murmur, no rub Gastrointestinal: soft, non-tender, no distention, positive bowel sounds Musculoskeletal: no edema Dx/Plan (1) Atrial fibrillation Code(s): I48.91 - UNSPECIFIED ATRIAL FIBRILLATION Status: Acute (2) Hypertension Code(s): I10 - ESSENTIAL (PRIMARY) HYPERTENSION Status: Chronic (3) Chronic anticoagulation Code(s): Z79.01 - LEGAL SECRETARY RECEPTIONIST (CURRENT) USE OF ANTICOAGULANTS Status: Acute (4) Hyperkalemia Code(s): E87.5 - HYPERKALEMIA Status: Acute - Plan * AFIB- she is s/p ablation and clinically stable * Hyperkalemia- resolved- ? hemolyzed sample * Stable for discharge home.
[2018-08-06 11:24] VITALS: BP 119/72; TEMP 98.1
--- NOTE | 2018-08-06 15:32 | DIS ---
DATE OF ADMISSION: 08/03/2018 DATE OF DISCHARGE: 08/06/2018 PRIMARY CARE PHYSICIAN: Lorene Ulrich, LULI DISCHARGE DISPOSITION: Home. PRIMARY DISCHARGE DIAGNOSES: 1. Atrial fibrillation with rapid ventricular response. 2. Hypertension. 3. Hyperlipidemia. 4. History of pacemaker. DISCHARGE MEDICATIONS: Include: 1. Warfarin 7.5 mg daily. 2. Tramadol 50 mg q.4 as needed for pain. 3. Digoxin 0.125 mg daily. 4. K-Dur 60 mEq p.o. daily. 5. Omeprazole 20 mg daily. 6. Synthroid 150 mcg p.o. daily. 7. Lasix 20 mg twice a day. 8. Prozac 20 mg daily. 9. Vitamin D3 of 2000 units q.h.s. 10. Atorvastatin 10 mg q.p.m. 11. Elavil 100 mg q.p.m. 12. Alendronate 70 mg weekly. PROCEDURES DONE DURING ADMISSION: The patient had a radiofrequency ablation. CODE STATUS: Full code. ALLERGIES: NO KNOWN DRUG ALLERGIES. HOSPITAL COURSE: Ms. Augustine is a pleasant 78-year-old female, who presented to the emergency room in atrial fibrillation with rapid ventricular response. She was admitted and started on IV Cardizem. She was seen by Cardiology as well as Electrophysiology. The patient ultimately underwent radiofrequency ablation. She tolerated the procedure well and was subsequently able to be discharged home. Digoxin was added to her regimen to aid in rate control. She is to resume warfarin and also to follow up with her primary care physician, Lorene Ulrich, in 1 to 2 weeks and also with Dr. Espinal as recommended. Job ID: [id number]
--- NOTE | 2018-08-06 16:47 | PDOC.CTH ---
Cardiology Progress Note - Subjective EP progress note: Patient seen and evaluated. No new cardiac concerns or complaints today. Denies heart racing, palpitations, chest pain/pressure, dizziness, or passing out. No stroke like symptoms. Bilateral groin sites stable without bleeding issues overnight. - Objective Vital Signs Temp Pulse Resp BP BP Pulse Ox 08/06/18 11:22 98.1 F 82 16 119/72 96 08/06/18 07:56 95 08/06/18 07:54 98.2 F 84 16 109/55 L 95 Weight 242 lb 11.2 oz 08/05/18 08/06/18 08/07/18 06:59 06:59 06:59 Intake Total 1570 1840 Output Total 1651 1025 Balance -81 815 - Physical Examination General/Neuro: alert & oriented x3, NAD Neck: carotid US brisk, no JVD present Lungs: CTA, unlabored respirations Heart: PMI normal, RRR Abdomen: NT/ND, soft Other PE findings: BL groin sites stable, no hematoma - Telemetry Telemetry Rhythm: SR - Labs Result Diagrams: 08/03/18 01:01 08/06/18 04:48 Troponin/CKMB CK-MB (CK-2) 1.1 ng/mL (0-6.6) 08/03/18 01:01 Troponin I Less than 0.010 ng/mL (< 0.028) 08/03/18 07:25 - Assessment/Plan 1. Recurrent atrial arrhythmias -intial PVAI April 2018. She never followed up in clinic after ablation -Increased sotalol to 80mg BID dosing upon admission and QTc remained stable on this increased dose 2. Typical atrial flutter -s/p CTI ablation 08/05/18 3. Pericardial effusion, chronic -hemodynamically stable. S/P CTI ablation yesterday. At the start and the end of the EP study - chronic moderate pericardial effusion was seen unchanged since her KERON 2 weeks ago, but she was also having labile blood pressures with anesthesia during the case. She was non inducible for additional arrhythmias following CTI line being placed. She has done well post ablation and is in sinus rhythm. OK to DC by EP. Continue sotalol and warfarin. Will see back in clinic in 6 weeks.
== END 2018-08-06 12:14 | disposition home or self-care (01) | DRG 274 ==
LOC: ERS 00:11 → 2SE 03:45 → 2NO 17:44
PROVIDERS: ADMIT Hospitalist; ATTEND Hospitalist
PROC: 02583ZZ Destruction of Conduction Mechanism, Percutaneous Approach (ICD-10-PCS; principal; 2018-08-03)
PROC: 4A023FZ Measurement of Cardiac Rhythm, Percutaneous Approach (ICD-10-PCS; 2018-08-03)
PROC: 4A0234Z Measurement of Cardiac Electrical Activity, Percutaneous Approach (ICD-10-PCS; 2018-08-03)
DX: I48.91 Unspecified atrial fibrillation (principal); I31.3 Pericardial effusion (noninflammatory); E87.5 Hyperkalemia; I48.3 Typical atrial flutter; I10 Essential (primary) hypertension; E78.5 Hyperlipidemia, unspecified; I25.10 Atherosclerotic heart disease of native coronary artery without angina pectoris; E03.9 Hypothyroidism, unspecified; E66.9 Obesity, unspecified; Z68.39 Body mass index [BMI] 39.0-39.9, adult; Z86.73 Personal history of transient ischemic attack (TIA), and cerebral infarction without residual deficits; Z96.653 Presence of artificial knee joint, bilateral; Z79.01 Long term (current) use of anticoagulants; Z79.899 Other long term (current) drug therapy; Z95.0 Presence of cardiac pacemaker
CPT/HCPCS: 36415; 71045; 76942; 80048; 80053; 82550; 82553; 83880; 84439; 84443; 84484; 85025; 85610; 93005; 93613; 93623; 93653; 93662; 96365; 96375; 96376; C1730; C1731; C1732; C1759; C1769; J1160; J1265; J1644; J1650; J2001; J2704; J7050

== ENCOUNTER 2021-03-14 14:43 | Outpatient (CLI) | payer MEDICARE ==
[~2021-03-14 14:43] MED LIST: Iopamidol-370 76% 500 ML 1 ML ONE
== END 2021-03-14 14:44 | disposition home or self-care (01) ==
LOC: BICCT 14:43
PROVIDERS: ATTEND Physician Assistant
DX: R51.9 Headache, unspecified (principal)
CPT/HCPCS: 70470; Q9967

== ENCOUNTER 2021-08-08 18:01 | Emergency (ER) | payer MEDICARE ==
[2021-08-08] MEDS ORDERED: Morphine 4 MG/ML VIAL ONE (19:35)
[2021-08-08] MEDS ORDERED: Ketorolac Tromethamine 30 MG/ML VIAL ONE (19:36)
[2021-08-08] MEDS ORDERED: Dexamethasone 4 MG TAB ONE (19:36)
[2021-08-08 19:54] LABS: #Basophils 0.1 thou/uL (0.0-0.2); #Eosinphils 0.3 thou/uL (0.0-0.7); #Lymphocytes 1.7 thou/uL (1.20-3.40); #Monocytes 0.8 thou/uL (0.11-0.59); #Neutrophils 6.1 thou/uL (1.40-6.50); %Basophils 0.8 % (0.0-1.0); %Eosinophils 2.9 % (0.0-10.0); %Lymphocytes 19.4 % (21.0-51.0); %Monocytes 8.8 % (0.0-10.0); %Neutrophils 68.2 % (42.0-75.0); Hemoglobin 15.3 g/dL (12.0-16.0); Mean Corpuscular HGB CONC 33.9 g/dL (32.0-36.0); Mean Corpuscular Hemoglobin 35.6 pg (27.0-31.0); Mean Platelet Volume 8.4 fL (7.4-10.4); Platelet Count 141 thou/uL (130-400); Red Blood Cell (RBC) Count 4.31 mill/uL (4.20-5.40); White Blood Cell (WBC) Count 8.9 thou/uL (4.8-10.8)
[2021-08-08 20:15] LABS: ALT (SGPT) 22 U/L (8-55); AST (SGOT) 27 U/L (5-34); Albumin 3.9 g/dL (3.4-4.8); Alkaline Phosphatase 84 U/L (40-110); Anion Gap 13 mmol/L (10-20); BUN (Urea Nitrogen) 27 mg/dL (9.8-20.1); Bilirubin, Total 0.7 mg/dL (0.2-1.2); CK (CPK) 24 U/L (29-168); Calc. Creatinine Clearance 0 mL/min (70-130); Calcium 8.9 mg/dL (7.8-10.44); Carbon Dioxide 26 mmol/L (23-31); Chloride 104 mmol/L (98-107); Globulin 3.3 g/dL (2.4-3.5); Glucose 90 mg/dL (83-110); Protein, Total 7.2 g/dL (5.8-8.1); Sodium 139 mmol/L (136-145)
== END 2021-08-08 21:18 | disposition home or self-care (01) ==
LOC: ERS 18:01
DX: M54.12 Radiculopathy, cervical region (principal); M48.02 Spinal stenosis, cervical region; I10 Essential (primary) hypertension; E78.5 Hyperlipidemia, unspecified; E78.00 Pure hypercholesterolemia, unspecified; Z86.73 Personal history of transient ischemic attack (TIA), and cerebral infarction without residual deficits
CPT/HCPCS: 36415; 72125; 80053; 82550; 85025; 96374; 96375; J1885; J2270; J8540

== ENCOUNTER 2021-09-08 12:59 | Observation (INO) | payer MEDICARE, OTHER ==
[2021-09-08] MEDS ORDERED: Morphine 10 MG/ML VIAL ONE (14:54)
[2021-09-08] MEDS ORDERED: Ketorolac Tromethamine 30 MG/ML VIAL ONE (14:54)
[2021-09-08] MEDS ORDERED: Aspirin Chewable 81 MG TAB ONE (17:09)
[2021-09-08] MEDS ORDERED: Nitroglycerin 2% Ointment 1 INCH/1 GM Packet ONE (17:11)
[2021-09-08 17:18] LABS: #Eosinphils 0.3 thou/uL (0.0-0.7); #Lymphocytes 1.5 thou/uL (1.20-3.40); #Monocytes 0.8 thou/uL (0.11-0.59); #Neutrophils 5.1 thou/uL (1.40-6.50); %Basophils 0.5 % (0.0-1.0); %Eosinophils 3.4 % (0.0-10.0); %Lymphocytes 19.6 % (21.0-51.0); %Monocytes 9.8 % (0.0-10.0); %Neutrophils 66.8 % (42.0-75.0); Hemoglobin 15.2 g/dL (12.0-16.0); Mean Corpuscular HGB CONC 34.4 g/dL (32.0-36.0); Mean Corpuscular Hemoglobin 36.1 pg (27.0-31.0); Mean Platelet Volume 8.9 fL (7.4-10.4); Platelet Count 140 thou/uL (130-400); RBC Distribution Width 11.8 % (11.5-14.5); Red Blood Cell (RBC) Count 4.21 mill/uL (4.20-5.40); White Blood Cell (WBC) Count 7.6 thou/uL (4.8-10.8)
[2021-09-08 17:39] LABS: ALT (SGPT) 53 U/L (8-55); AST (SGOT) 120 U/L (5-34); Albumin 3.9 g/dL (3.4-4.8); Alkaline Phosphatase 82 U/L (40-110); Anion Gap 16 mmol/L (10-20); BUN (Urea Nitrogen) 22 mg/dL (9.8-20.1); Calc. Creatinine Clearance 0 mL/min (70-130); Calcium 9.1 mg/dL (7.8-10.44); Carbon Dioxide 25 mmol/L (23-31); Chloride 105 mmol/L (98-107); Globulin 2.8 g/dL (2.4-3.5); Glucose 92 mg/dL (83-110); Potassium 4.6 mmol/L (3.5-5.1); Protein, Total 6.7 g/dL (5.8-8.1); Sodium 141 mmol/L (136-145)
[2021-09-08] MEDS ORDERED: Nitroglycerin 0.4 MG TAB (25 Tab Bottle) SL PRN (19:38)
[2021-09-08] MEDS ORDERED: Ondansetron PF 4 MG/2 ML Vial IVP PRN (19:38)
[2021-09-08] MEDS: Apixaban 5 MG TAB PO SCH (22:16)
[2021-09-08] MEDS: Gabapentin 100 MG CAP PO SCH (22:16)
[2021-09-08 22:18] VITALS: BMI 36.3
[2021-09-08 22:46] LABS: Troponin I Less than 0.010 ng/mL (< 0.028)
[2021-09-08] MEDS: Acetaminophen 325 MG TAB PO PRN (23:59)
[2021-09-09 01:47] LABS: Troponin I Less than 0.010 ng/mL (< 0.028)
[2021-09-09 04:45] LABS: #Eosinphils 0.2 thou/uL (0.0-0.7); #Monocytes 0.7 thou/uL (0.11-0.59); #Neutrophils 4.4 thou/uL (1.40-6.50); %Basophils 0.6 % (0.0-1.0); %Eosinophils 2.9 % (0.0-10.0); %Lymphocytes 16.1 % (21.0-51.0); %Monocytes 10.6 % (0.0-10.0); %Neutrophils 69.7 % (42.0-75.0); Hemoglobin 13.9 g/dL (12.0-16.0); Mean Corpuscular Hemoglobin 34.9 pg (27.0-31.0); Mean Platelet Volume 9.4 fL (7.4-10.4); Platelet Count 124 thou/uL (130-400); RBC Distribution Width 11.8 % (11.5-14.5); White Blood Cell (WBC) Count 6.3 thou/uL (4.8-10.8)
[2021-09-09 05:10] LABS: Anion Gap 14 mmol/L (10-20); BUN (Urea Nitrogen) 24 mg/dL (9.8-20.1); Calc. Creatinine Clearance 66 mL/min (70-130); Calcium 8.8 mg/dL (7.8-10.44); Carbon Dioxide 27 mmol/L (23-31); Chloride 104 mmol/L (98-107); Glucose 105 mg/dL (83-110); Potassium 4.8 mmol/L (3.5-5.1); Sodium 140 mmol/L (136-145)
[2021-09-09] MEDS ORDERED: Sodium Chloride 0.9% 500 ML IV SCH (06:00)
[2021-09-09] MEDS ORDERED: Sotalol HCl 80 MG TAB PO SCH (09:00)
[2021-09-09] MEDS: Acetaminophen 325 MG TAB PO PRN (09:50)
[2021-09-09] MEDS: Apixaban 5 MG TAB PO SCH (10:55)
[2021-09-09] MEDS: Gabapentin 100 MG CAP PO SCH (10:55)
[2021-09-09 11:19] VITALS: BP 149/71; TEMP 97.6
[2021-09-09 11:53] LABS: SARS-CoV-2 PCR by NAA Not Detected (NotDetected)
[2021-09-09] MEDS ORDERED: FLUoxetine HCl 20 MG CAP PO SCH (21:00)
[2021-09-09] MEDS ORDERED: Digoxin 0.125 MG TAB PO SCH (21:00)
[2021-09-09] MEDS ORDERED: Atorvastatin Calcium 10 MG TAB PO SCH (21:00)
== END 2021-09-09 13:40 | disposition home or self-care (01) ==
LOC: ERS 12:59 → 2NO 18:38
PROVIDERS: ADMIT Internal Medicine; ATTEND Internal Medicine
DX: R07.9 Chest pain, unspecified (principal); G89.29 Other chronic pain; M54.2 Cervicalgia; M54.50 Low back pain, unspecified; I12.9 Hypertensive chronic kidney disease with stage 1 through stage 4 chronic kidney disease, or unspecified chronic kidney disease; N18.9 Chronic kidney disease, unspecified; E78.5 Hyperlipidemia, unspecified; I48.91 Unspecified atrial fibrillation; E03.9 Hypothyroidism, unspecified; Z20.822 Contact with and (suspected) exposure to COVID-19; E78.00 Pure hypercholesterolemia, unspecified; Z86.73 Personal history of transient ischemic attack (TIA), and cerebral infarction without residual deficits; Z79.01 Long term (current) use of anticoagulants; Z79.890 Hormone replacement therapy; Z79.899 Other long term (current) drug therapy; Z95.0 Presence of cardiac pacemaker
CPT/HCPCS: 71045; 78452; 80048; 80053; 84484 ×3; 85025 ×2; 93005; 93017; 94760 ×2; 96372; 96374; 99285; A9500; G0378 ×3; U0003; U0005; 36415; J0153; J1885; J2270; J2405; J7030

== ENCOUNTER 2021-10-03 07:06 | Day surgery (SDC) | payer MEDICARE, OTHER ==
[2021-10-03 07:48] VITALS: BMI 37.3
[2021-10-03 07:50] VITALS: BP 156/87; TEMP 98.6
== END 2021-10-03 10:25 | disposition home or self-care (01) ==
LOC: RAD 07:06
PROVIDERS: ATTEND Physician Assistant
PROC: B02B1ZZ Computerized Tomography (CT Scan) of Spinal Cord using Low Osmolar Contrast (ICD-10-PCS; principal; 2021-10-03)
DX: M47.12 Other spondylosis with myelopathy, cervical region (principal); M48.02 Spinal stenosis, cervical region; M47.26 Other spondylosis with radiculopathy, lumbar region; M43.16 Spondylolisthesis, lumbar region; M48.05 Spinal stenosis, thoracolumbar region; M25.78 Osteophyte, vertebrae; M48.061 Spinal stenosis, lumbar region without neurogenic claudication; R16.2 Hepatomegaly with splenomegaly, not elsewhere classified; K76.0 Fatty (change of) liver, not elsewhere classified; I70.0 Atherosclerosis of aorta; K57.30 Diverticulosis of large intestine without perforation or abscess without bleeding; N28.1 Cyst of kidney, acquired; I48.91 Unspecified atrial fibrillation; I25.10 Atherosclerotic heart disease of native coronary artery without angina pectoris; E78.5 Hyperlipidemia, unspecified; I11.0 Hypertensive heart disease with heart failure; I50.9 Heart failure, unspecified; K21.9 Gastro-esophageal reflux disease without esophagitis; E03.9 Hypothyroidism, unspecified; J45.20 Mild intermittent asthma, uncomplicated; Z79.01 Long term (current) use of anticoagulants; Z79.899 Other long term (current) drug therapy; Z88.5 Allergy status to narcotic agent; Z91.018 Allergy to other foods; Z95.0 Presence of cardiac pacemaker; Z98.1 Arthrodesis status
CPT/HCPCS: 62305; 72126; 72132

== ENCOUNTER 2021-10-04 17:28 | Emergency (ER) | payer MEDICARE, OTHER ==
[2021-10-04] MEDS ORDERED: Acetaminophen/Codeine 30-300mg Tablet ONE (20:02)
[2021-10-04] MEDS ORDERED: HYDROcodone/Acetaminophen 5/325 mg Tablet ONE (21:11)
[2021-10-04] MEDS ORDERED: Ketorolac Tromethamine 30 MG/ML VIAL ONE (21:11)
== END 2021-10-04 22:30 | disposition home or self-care (01) ==
LOC: ERS 17:28
DX: M54.50 Low back pain, unspecified (principal); E78.5 Hyperlipidemia, unspecified; I10 Essential (primary) hypertension; Z86.73 Personal history of transient ischemic attack (TIA), and cerebral infarction without residual deficits; I48.91 Unspecified atrial fibrillation; Z79.899 Other long term (current) drug therapy
CPT/HCPCS: 96372; 99283; J1885

== ENCOUNTER 2022-01-30 11:49 | Outpatient (CLI) | payer MEDICARE, OTHER | END 2022-01-30 11:50 | disposition home or self-care (01) | LOC: BICRAD 11:49 | PROVIDERS: ATTEND Physician Assistant | DX: R06.02 Shortness of breath (principal) | CPT/HCPCS: 71046 ==

== ENCOUNTER 2022-09-11 15:18 | Inpatient (IN) | payer MEDICARE, OTHER ==
[2022-09-11 16:49] VITALS: BMI 41.1
[2022-09-11] MEDS ORDERED: Sodium Chloride 0.9% 1,000 ML IV SCH (18:00)
[2022-09-11] MEDS ORDERED: Ondansetron PF 4 MG/2 ML Vial IVP PRN ×2 (18:00→18:04)
[2022-09-11] MEDS ORDERED: Ondansetron ODT 4 MG TAB SL PRN (18:00)
[2022-09-11] MEDS ORDERED: Acetaminophen 325 MG TAB PO PRN ×2 (18:00→18:27)
[2022-09-11] MEDS ORDERED: HYDROcodone/Acetaminophen 5/325 mg Tablet PO PRN (18:01)
[2022-09-11] MEDS ORDERED: Ipratropium/Albuterol 3 ML NEB NEB PRN (18:03)
[2022-09-11] MEDS ORDERED: Ondansetron ODT 4 MG TAB PO PRN (18:04)
[2022-09-11] MEDS ORDERED: Ketorolac Tromethamine 30 MG/ML VIAL IVP SCH (18:15)
[2022-09-11] MEDS ORDERED: Azithromycin 500 MG in Sodium Chloride 0.9% 250 ML 250 ML IVPB SCH (21:00)
[2022-09-11] MEDS: Cholecalciferol 1,000 UNITS (25 MCG) TAB PO SCH (21:58)
[2022-09-11] MEDS: Atorvastatin Calcium 10 MG TAB PO SCH (21:59)
[2022-09-11] MEDS: HYDROcodone/Acetaminophen 10/325 mg Tablet PO PRN (21:59)
[2022-09-11] MEDS: Apixaban 5 MG TAB PO SCH (21:59)
[2022-09-11] MEDS: Sotalol HCl 80 MG TAB PO SCH (22:00)
[2022-09-11] MEDS: cefTRIAXone\\ROCEPHIN 1 GM in Sodium Chloride 0.9% 100 ML IVPB SCH (22:00)
[2022-09-11] MEDS: Doxycycline 100 MG in Sodium Chloride 0.9% 100 ML IVPB SCH (22:01)
[2022-09-11] MEDS: Ipratropium Bromide 2.5 ml Neb NEB SCH ×2 (22:27→22:44)
[2022-09-11] MEDS: Mometasone 100 MCG/Formoterol 5 MCG 120 PUFF INHALER INH SCH (22:43)
[2022-09-11 23:29] LABS: Legionella Urinary Ag Negative (Negative); Strep pneumo Urine Ag NEGATIVE (NEGATIVE)
[2022-09-12] MEDS: Ipratropium Bromide 2.5 ml Neb NEB SCH ×6 (02:30→22:18)
[2022-09-12 05:01] LABS: #Basophils 0.1 thou/uL (0.0-0.2); #Lymphocytes 0.6 thou/uL (1.20-3.40); #Monocytes 0.2 thou/uL (0.11-0.59); #Neutrophils 5.5 thou/uL (1.40-6.50); %Basophils 2.1 % (0.0-1.0); %Eosinophils 0.1 % (0.0-10.0); %Lymphocytes 9.7 % (21.0-51.0); %Monocytes 2.8 % (0.0-10.0); %Neutrophils 85.4 % (42.0-75.0); Hemoglobin 14.3 g/dL (12.0-16.0); Mean Corpuscular Hemoglobin 34.3 pg (27.0-31.0); Mean Platelet Volume 9.8 fL (7.4-10.4); Platelet Count 123 10x3/uL (130-400); RBC Distribution Width 12.2 % (11.5-14.5); Red Blood Cell (RBC) Count 4.17 mill/uL (4.20-5.40); White Blood Cell (WBC) Count 6.5 10x3/uL (4.8-10.8)
[2022-09-12 05:19] LABS: ALT (SGPT) 66 U/L (8-55); AST (SGOT) 67 U/L (5-34); Albumin 3.6 g/dL (3.4-4.8); Alkaline Phosphatase 154 U/L (40-110); Anion Gap 12 mmol/L (10-20); BUN (Urea Nitrogen) 12 mg/dL (9.8-20.1); Calc. Creatinine Clearance 107 mL/min (70-130); Calcium 8.8 mg/dL (7.8-10.44); Carbon Dioxide 30 mmol/L (23-31); Chloride 98 mmol/L (98-107); Estimated GFR 82; Globulin 3.2 g/dL (2.4-3.5); Glucose 133 mg/dL (83-110); Potassium 4.3 mmol/L (3.5-5.1); Protein, Total 6.8 g/dL (5.8-8.1); Sodium 136 mmol/L (136-145)
[2022-09-12] MEDS: HYDROcodone/Acetaminophen 10/325 mg Tablet PO PRN ×4 (05:48→21:59)
[2022-09-12] MEDS: Levothyroxine Sodium 125 MCG TAB PO SCH (05:48)
[2022-09-12] MEDS: Mometasone 100 MCG/Formoterol 5 MCG 120 PUFF INHALER INH SCH ×2 (08:29→18:46)
[2022-09-12] MEDS: Apixaban 5 MG TAB PO SCH ×2 (08:41→21:59)
[2022-09-12] MEDS: Sotalol HCl 80 MG TAB PO SCH ×2 (08:42→22:00)
[2022-09-12] MEDS: Doxycycline 100 MG in Sodium Chloride 0.9% 100 ML IVPB SCH ×2 (08:58→21:58)
[2022-09-12] MEDS ORDERED: Potassium Chloride 20 MEQ TAB PO SCH (09:00)
[2022-09-12] MEDS ORDERED: methylPREDNISolone Sod Succ 40 MG VIAL IVP SCH (09:00)
[2022-09-12] MEDS ORDERED: Amlodipine 5 MG TAB PO SCH (11:45)
[2022-09-12] MEDS ORDERED: Albuterol 2.5 MG/0.5 ML NEB ONE (11:51)
[2022-09-12] MEDS: methylPREDNISolone Sod Succ 40 MG VIAL IVP SCH ×2 (13:52→22:00)
[2022-09-12] MEDS ORDERED: Polyethylene Glycol 3350 17 GM Packet PO SCH (18:30)
[2022-09-12] MEDS ORDERED: Ipratropium/Albuterol 3 ML NEB ONE (21:54)
[2022-09-12] MEDS: cefTRIAXone\\ROCEPHIN 1 GM in Sodium Chloride 0.9% 100 ML IVPB SCH (21:59)
[2022-09-12] MEDS: Digoxin 0.125 MG TAB PO SCH (22:00)
[2022-09-12] MEDS: Cholecalciferol 1,000 UNITS (25 MCG) TAB PO SCH (22:07)
[2022-09-12] MEDS: Atorvastatin Calcium 10 MG TAB PO SCH (22:07)
[2022-09-13] MEDS ORDERED: Ipratropium/Albuterol 3 ML NEB ONE (01:16)
[2022-09-13] MEDS: Ipratropium Bromide 2.5 ml Neb NEB SCH ×3 (01:22→10:50)
[2022-09-13 05:03] LABS: #Lymphocytes 0.8 thou/uL (1.20-3.40); #Monocytes 0.3 thou/uL (0.11-0.59); #Neutrophils 8.2 thou/uL (1.40-6.50); %Eosinophils 0.2 % (0.0-10.0); %Lymphocytes 8.2 % (21.0-51.0); %Monocytes 3.6 % (0.0-10.0); %Neutrophils 87.9 % (42.0-75.0); Hemoglobin 13.9 g/dL (12.0-16.0); Mean Corpuscular HGB CONC 33.1 g/dL (32.0-36.0); Mean Corpuscular Hemoglobin 34.3 pg (27.0-31.0); Mean Platelet Volume 9.3 fL (7.4-10.4); Platelet Count 155 10x3/uL (130-400); RBC Distribution Width 12.4 % (11.5-14.5); Red Blood Cell (RBC) Count 4.05 mill/uL (4.20-5.40); White Blood Cell (WBC) Count 9.3 10x3/uL (4.8-10.8)
[2022-09-13 05:12] LABS: Anion Gap 11 mmol/L (10-20); BUN (Urea Nitrogen) 19 mg/dL (9.8-20.1); Calc. Creatinine Clearance 102 mL/min (70-130); Calcium 9.1 mg/dL (7.8-10.44); Carbon Dioxide 29 mmol/L (23-31); Chloride 100 mmol/L (98-107); Estimated GFR 77; Glucose 140 mg/dL (83-110); Potassium 4.4 mmol/L (3.5-5.1); Sodium 136 mmol/L (136-145)
[2022-09-13 05:36] LABS: Hep C IgG Ab Non-Reactive (NonReactive); Hep C Index 0.12 S/CO (0-0.79)
[2022-09-13] MEDS: HYDROcodone/Acetaminophen 10/325 mg Tablet PO PRN ×2 (05:50→22:06)
[2022-09-13] MEDS: Levothyroxine Sodium 125 MCG TAB PO SCH (05:51)
[2022-09-13] MEDS: methylPREDNISolone Sod Succ 40 MG VIAL IVP SCH ×3 (05:51→22:07)
[2022-09-13] MEDS: Amlodipine 5 MG TAB PO SCH (09:55)
[2022-09-13] MEDS: Polyethylene Glycol 3350 17 GM Packet PO SCH (09:56)
[2022-09-13] MEDS: Sotalol HCl 80 MG TAB PO SCH ×2 (09:56→21:59)
[2022-09-13] MEDS: Doxycycline 100 MG in Sodium Chloride 0.9% 100 ML IVPB SCH ×2 (09:56→22:03)
[2022-09-13] MEDS: Apixaban 5 MG TAB PO SCH ×2 (09:56→22:00)
[2022-09-13] MEDS: Mometasone 100 MCG/Formoterol 5 MCG 120 PUFF INHALER INH SCH (10:48)
[2022-09-13] MEDS: Ipratropium/Albuterol 3 ML NEB NEB SCH ×3 (13:32→21:27)
[2022-09-13] MEDS: Mometasone 200 MCG/Formoterol 5 MCG 120 PUFF INHALER INH SCH (18:44)
[2022-09-13] MEDS: cefTRIAXone\\ROCEPHIN 1 GM in Sodium Chloride 0.9% 100 ML IVPB SCH (21:57)
[2022-09-13] MEDS: Cholecalciferol 1,000 UNITS (25 MCG) TAB PO SCH (21:59)
[2022-09-13] MEDS: Atorvastatin Calcium 10 MG TAB PO SCH (22:01)
[2022-09-13] MEDS: Melatonin 3 MG TAB PO PRN (22:01)
[2022-09-13] MEDS: Digoxin 0.125 MG TAB PO SCH (22:02)
[2022-09-14] MEDS: methylPREDNISolone Sod Succ 40 MG VIAL IVP SCH ×3 (04:50→21:54)
[2022-09-14] MEDS: Levothyroxine Sodium 125 MCG TAB PO SCH (04:50)
[2022-09-14 04:51] LABS: #Lymphocytes 0.7 thou/uL (1.20-3.40); #Monocytes 0.4 thou/uL (0.11-0.59); #Neutrophils 8.3 thou/uL (1.40-6.50); %Basophils 0.1 % (0.0-1.0); %Lymphocytes 7.4 % (21.0-51.0); %Monocytes 3.8 % (0.0-10.0); %Neutrophils 88.8 % (42.0-75.0); Hemoglobin 14.2 g/dL (12.0-16.0); Mean Corpuscular HGB CONC 33.3 g/dL (32.0-36.0); Mean Corpuscular Hemoglobin 34.7 pg (27.0-31.0); Mean Platelet Volume 9.6 fL (7.4-10.4); Platelet Count 172 10x3/uL (130-400); RBC Distribution Width 12.8 % (11.5-14.5); Red Blood Cell (RBC) Count 4.09 mill/uL (4.20-5.40); White Blood Cell (WBC) Count 9.3 10x3/uL (4.8-10.8)
[2022-09-14] MEDS: HYDROcodone/Acetaminophen 10/325 mg Tablet PO PRN ×3 (04:55→21:55)
[2022-09-14 05:08] LABS: Anion Gap 14 mmol/L (10-20); BUN (Urea Nitrogen) 22 mg/dL (9.8-20.1); Calc. Creatinine Clearance 104 mL/min (70-130); Carbon Dioxide 27 mmol/L (23-31); Chloride 100 mmol/L (98-107); Estimated GFR 79; Glucose 131 mg/dL (83-110); Potassium 4.5 mmol/L (3.5-5.1); Sodium 136 mmol/L (136-145)
[2022-09-14 05:25] LABS: HIV (1/2) Antibody/Antigen Non-Reactive (NonReactive); HIV 1/2 INDEX 0.26 S/CO (<1.00)
[2022-09-14 07:15] LABS: Hep B Surface AG-Rflx Sendout Negative (Negative); Hepatitis B Core Total Negative (Negative); Hepatitis B Surface AB-Sendout Non Reactive (.)
[2022-09-14] MEDS: Ipratropium/Albuterol 3 ML NEB NEB SCH ×5 (07:27→21:45)
[2022-09-14] MEDS: Mometasone 200 MCG/Formoterol 5 MCG 120 PUFF INHALER INH SCH ×2 (07:29→18:20)
[2022-09-14] MEDS: Doxycycline 100 MG in Sodium Chloride 0.9% 100 ML IVPB SCH ×2 (09:06→21:55)
[2022-09-14] MEDS: Apixaban 5 MG TAB PO SCH ×2 (09:06→21:53)
[2022-09-14] MEDS: Amlodipine 5 MG TAB PO SCH (09:06)
[2022-09-14] MEDS: Polyethylene Glycol 3350 17 GM Packet PO SCH (09:07)
[2022-09-14] MEDS: Sotalol HCl 80 MG TAB PO SCH ×2 (09:07→21:54)
[2022-09-14] MEDS ORDERED: Bisacodyl 5 MG TAB PO PRN (16:21)
[2022-09-14] MEDS ORDERED: Bisacodyl 5 MG TAB PO SCH (16:30)
[2022-09-14] MEDS: cefTRIAXone\\ROCEPHIN 1 GM in Sodium Chloride 0.9% 100 ML IVPB SCH (21:52)
[2022-09-14] MEDS: Digoxin 0.125 MG TAB PO SCH (21:53)
[2022-09-14] MEDS: Atorvastatin Calcium 10 MG TAB PO SCH (21:53)
[2022-09-14] MEDS: Cholecalciferol 1,000 UNITS (25 MCG) TAB PO SCH (21:55)
[2022-09-14 22:36] LABS: Mycoplasma pneumoniae IgG AB 986 U/mL (0-99); Mycoplasma pneumoniae IgM AB Less than 770 U/mL (0-769)
[2022-09-15 04:58] LABS: #Lymphocytes 0.7 thou/uL (1.20-3.40); #Monocytes 0.3 thou/uL (0.11-0.59); #Neutrophils 7.9 thou/uL (1.40-6.50); %Eosinophils 0.1 % (0.0-10.0); %Monocytes 3.8 % (0.0-10.0); %Neutrophils 88.2 % (42.0-75.0); Hemoglobin 14.4 g/dL (12.0-16.0); Mean Corpuscular HGB CONC 33.5 g/dL (32.0-36.0); Mean Corpuscular Hemoglobin 34.7 pg (27.0-31.0); Mean Platelet Volume 9.1 fL (7.4-10.4); Platelet Count 186 10x3/uL (130-400); RBC Distribution Width 12.6 % (11.5-14.5); Red Blood Cell (RBC) Count 4.14 mill/uL (4.20-5.40); White Blood Cell (WBC) Count 8.9 10x3/uL (4.8-10.8)
[2022-09-15 05:29] LABS: Anion Gap 11 mmol/L (10-20); BUN (Urea Nitrogen) 24 mg/dL (9.8-20.1); Calc. Creatinine Clearance 104 mL/min (70-130); Calcium 9.4 mg/dL (7.8-10.44); Carbon Dioxide 31 mmol/L (23-31); Chloride 101 mmol/L (98-107); Estimated GFR 79; Glucose 139 mg/dL (83-110); Potassium 4.4 mmol/L (3.5-5.1); Sodium 139 mmol/L (136-145)
[2022-09-15] MEDS: methylPREDNISolone Sod Succ 40 MG VIAL IVP SCH ×2 (06:27→13:44)
[2022-09-15] MEDS: Levothyroxine Sodium 125 MCG TAB PO SCH (06:27)
[2022-09-15] MEDS: HYDROcodone/Acetaminophen 10/325 mg Tablet PO PRN ×2 (06:33→20:54)
[2022-09-15] MEDS: Ipratropium/Albuterol 3 ML NEB NEB SCH ×5 (07:59→22:05)
[2022-09-15] MEDS: Mometasone 200 MCG/Formoterol 5 MCG 120 PUFF INHALER INH SCH ×2 (08:01→19:47)
[2022-09-15] MEDS: Amlodipine 5 MG TAB PO SCH (08:59)
[2022-09-15] MEDS: Polyethylene Glycol 3350 17 GM Packet PO SCH (08:59)
[2022-09-15] MEDS: Apixaban 5 MG TAB PO SCH ×2 (09:00→20:52)
[2022-09-15] MEDS: Doxycycline 100 MG in Sodium Chloride 0.9% 100 ML IVPB SCH ×2 (09:00→20:53)
[2022-09-15] MEDS: Sotalol HCl 80 MG TAB PO SCH ×2 (09:00→20:53)
[2022-09-15] MEDS: cefTRIAXone\\ROCEPHIN 1 GM in Sodium Chloride 0.9% 100 ML IVPB SCH (20:51)
[2022-09-15] MEDS: Digoxin 0.125 MG TAB PO SCH (20:53)
[2022-09-15] MEDS: Atorvastatin Calcium 10 MG TAB PO SCH (20:53)
[2022-09-15] MEDS: Cholecalciferol 1,000 UNITS (25 MCG) TAB PO SCH (20:53)
[2022-09-15] MEDS: Melatonin 3 MG TAB PO PRN (20:54)
[2022-09-16 05:02] LABS: #Basophils 0.1 thou/uL (0.0-0.2); #Lymphocytes 1.1 thou/uL (1.20-3.40); #Monocytes 1.1 thou/uL (0.11-0.59); #Neutrophils 7.7 thou/uL (1.40-6.50); %Eosinophils 0.2 % (0.0-10.0); %Lymphocytes 10.7 % (21.0-51.0); %Neutrophils 77.1 % (42.0-75.0); Hemoglobin 15.1 g/dL (12.0-16.0); Mean Corpuscular Hemoglobin 33.9 pg (27.0-31.0); Mean Platelet Volume 8.8 fL (7.4-10.4); Platelet Count 185 10x3/uL (130-400); RBC Distribution Width 12.4 % (11.5-14.5); Red Blood Cell (RBC) Count 4.46 mill/uL (4.20-5.40)
[2022-09-16] MEDS: methylPREDNISolone Sod Succ 40 MG VIAL IVP SCH ×2 (05:27→13:57)
[2022-09-16 05:31] LABS: Anion Gap 12 mmol/L (10-20); BUN (Urea Nitrogen) 27 mg/dL (9.8-20.1); Calc. Creatinine Clearance 102 mL/min (70-130); Carbon Dioxide 31 mmol/L (23-31); Chloride 99 mmol/L (98-107); Estimated GFR 77; Glucose 116 mg/dL (83-110); Potassium 4.3 mmol/L (3.5-5.1); Sodium 138 mmol/L (136-145)
[2022-09-16] MEDS: Levothyroxine Sodium 125 MCG TAB PO SCH (07:19)
[2022-09-16] MEDS: Ipratropium/Albuterol 3 ML NEB NEB SCH ×5 (07:36→22:43)
[2022-09-16] MEDS: Mometasone 200 MCG/Formoterol 5 MCG 120 PUFF INHALER INH SCH ×2 (07:36→18:48)
[2022-09-16] MEDS: Sotalol HCl 80 MG TAB PO SCH ×2 (10:03→21:07)
[2022-09-16] MEDS: Apixaban 5 MG TAB PO SCH ×2 (10:03→21:06)
[2022-09-16] MEDS: Polyethylene Glycol 3350 17 GM Packet PO SCH (10:03)
[2022-09-16] MEDS: Doxycycline 100 MG in Sodium Chloride 0.9% 100 ML IVPB SCH ×2 (10:03→23:00)
[2022-09-16] MEDS: Amlodipine 5 MG TAB PO SCH (10:03)
[2022-09-16] MEDS: HYDROcodone/Acetaminophen 10/325 mg Tablet PO PRN ×2 (13:57→22:57)
[2022-09-16] MEDS: Atorvastatin Calcium 10 MG TAB PO SCH (21:06)
[2022-09-16] MEDS: cefTRIAXone\\ROCEPHIN 1 GM in Sodium Chloride 0.9% 100 ML IVPB SCH (21:06)
[2022-09-16] MEDS: Cholecalciferol 1,000 UNITS (25 MCG) TAB PO SCH (21:07)
[2022-09-16] MEDS: Digoxin 0.125 MG TAB PO SCH (21:07)
[2022-09-16] MEDS: Melatonin 3 MG TAB PO PRN (22:57)
[2022-09-17] MEDS: methylPREDNISolone Sod Succ 40 MG VIAL IVP SCH ×2 (01:53→14:36)
[2022-09-17] MEDS: HYDROcodone/Acetaminophen 10/325 mg Tablet PO PRN ×2 (03:26→20:43)
[2022-09-17] MEDS: Levothyroxine Sodium 125 MCG TAB PO SCH (03:27)
[2022-09-17] MEDS ORDERED: cloNIDine 0.1 MG TAB PO SCH (04:45)
[2022-09-17 05:26] LABS: ALT (SGPT) 35 U/L (8-55); AST (SGOT) 23 U/L (5-34); Albumin 3.5 g/dL (3.4-4.8); Alkaline Phosphatase 108 U/L (40-110); Bilirubin, Direct 0.3 mg/dL (0.1-0.3); Bilirubin, Total 0.6 mg/dL (0.2-1.2); Protein, Total 6.5 g/dL (5.8-8.1)
[2022-09-17] MEDS: Mometasone 200 MCG/Formoterol 5 MCG 120 PUFF INHALER INH SCH ×2 (07:30→19:18)
[2022-09-17] MEDS: Ipratropium/Albuterol 3 ML NEB NEB SCH ×4 (07:31→19:16)
[2022-09-17] MEDS: Amlodipine 5 MG TAB PO SCH (08:31)
[2022-09-17] MEDS: Apixaban 5 MG TAB PO SCH ×2 (08:31→20:44)
[2022-09-17] MEDS: Polyethylene Glycol 3350 17 GM Packet PO SCH (08:32)
[2022-09-17] MEDS: Sotalol HCl 80 MG TAB PO SCH ×2 (08:33→20:43)
[2022-09-17] MEDS: Doxycycline 100 MG in Sodium Chloride 0.9% 100 ML IVPB SCH ×2 (10:11→20:46)
[2022-09-17] MEDS: Digoxin 0.125 MG TAB PO SCH (20:43)
[2022-09-17] MEDS: Cholecalciferol 1,000 UNITS (25 MCG) TAB PO SCH (20:43)
[2022-09-17] MEDS: Melatonin 3 MG TAB PO PRN (20:44)
[2022-09-17] MEDS: Atorvastatin Calcium 10 MG TAB PO SCH (20:44)
[2022-09-18] MEDS: HYDROcodone/Acetaminophen 10/325 mg Tablet PO PRN ×2 (01:22→05:02)
[2022-09-18] MEDS ORDERED: cloNIDine 0.1 MG TAB PO SCH (04:15)
[2022-09-18] MEDS: Levothyroxine Sodium 125 MCG TAB PO SCH (05:03)
[2022-09-18 05:13] LABS: ALT (SGPT) 29 U/L (8-55); AST (SGOT) 35 U/L (5-34); Albumin 3.5 g/dL (3.4-4.8); Alkaline Phosphatase 106 U/L (40-110); Bilirubin, Direct 0.2 mg/dL (0.1-0.3); Bilirubin, Total 0.7 mg/dL (0.2-1.2); Protein, Total 7.1 g/dL (5.8-8.1)
[2022-09-18] MEDS: Ipratropium/Albuterol 3 ML NEB NEB SCH ×2 (07:16→14:09)
[2022-09-18] MEDS: Mometasone 200 MCG/Formoterol 5 MCG 120 PUFF INHALER INH SCH (07:17)
[2022-09-18] MEDS ORDERED: predniSONE 20 MG TAB PO SCH (08:00)
[2022-09-18] MEDS: Doxycycline 100 MG in Sodium Chloride 0.9% 100 ML IVPB SCH (10:15)
[2022-09-18] MEDS: Sotalol HCl 80 MG TAB PO SCH (10:16)
[2022-09-18] MEDS: Apixaban 5 MG TAB PO SCH (10:16)
[2022-09-18] MEDS: Polyethylene Glycol 3350 17 GM Packet PO SCH (10:16)
[2022-09-18] MEDS: Amlodipine 5 MG TAB PO SCH (10:16)
[2022-09-18 11:54] VITALS: BP 132/63; TEMP 97.6
== END 2022-09-18 15:40 | disposition home or self-care (01) | DRG 196 ==
LOC: 2NO 16:12
PROVIDERS: ADMIT Family Medicine; ATTEND Internal Medicine
DX: B44.81 Allergic bronchopulmonary aspergillosis (principal); J96.01 Acute respiratory failure with hypoxia; I50.32 Chronic diastolic (congestive) heart failure; J45.21 Mild intermittent asthma with (acute) exacerbation; I10 Essential (primary) hypertension; I48.91 Unspecified atrial fibrillation; E78.5 Hyperlipidemia, unspecified; E03.9 Hypothyroidism, unspecified; K59.00 Constipation, unspecified; Z88.5 Allergy status to narcotic agent; Z79.899 Other long term (current) drug therapy; Z95.0 Presence of cardiac pacemaker; Z79.890 Hormone replacement therapy; Z90.49 Acquired absence of other specified parts of digestive tract
CPT/HCPCS: 36415; 36416; 80048; 80053; 80076; 82785; 84145; 85025; 86606; 86704; 86706; 86803; 87070; 87116; 87205; 87206; 87340; 87389; 87449; 87631; 87899; 94640; 94664; J0696; J1885; J2405; J2920; J3490; J7050; J7512; J7620

== ENCOUNTER 2022-11-04 01:51 | Emergency (ER) | payer MEDICARE, OTHER ==
[2022-11-04] MEDS ORDERED: Lidocaine 1% w/Epinephrine 1:100K 20 ML VIAL ONE (02:11)
[2022-11-04] MEDS ORDERED: Lidocaine 2% PF 5 ML VIAL ONE (02:11)
[2022-11-04] MEDS ORDERED: Lidocaine 1% PF 5 ML VIAL ONE (02:11)
[2022-11-04 02:38] LABS: Hemoglobin 15.4 g/dL (12.0-16.0); Mean Corpuscular HGB CONC 33.2 g/dL (32.0-36.0); Mean Corpuscular Hemoglobin 34.8 pg (27.0-31.0); RBC Distribution Width 13.1 % (11.5-14.5); Red Blood Cell (RBC) Count 4.43 mill/uL (4.20-5.40); White Blood Cell (WBC) Count 9.1 10x3/uL (4.8-10.8)
[2022-11-04 02:48] LABS: ALT (SGPT) 16 U/L (8-55); AST (SGOT) 28 U/L (5-34); Alkaline Phosphatase 97 U/L (40-110); Anion Gap 20 mmol/L (10-20); BUN (Urea Nitrogen) 16 mg/dL (9.8-20.1); Bilirubin, Total 0.6 mg/dL (0.2-1.2); Calc. Creatinine Clearance 0 mL/min (70-130); Calcium 8.9 mg/dL (7.8-10.44); Carbon Dioxide 19 mmol/L (23-31); Chloride 106 mmol/L (98-107); Estimated GFR 51; Globulin 2.6 g/dL (2.4-3.5); Glucose 102 mg/dL (83-110); Potassium 3.9 mmol/L (3.5-5.1); Protein, Total 6.6 g/dL (5.8-8.1); Sodium 141 mmol/L (136-145)
[2022-11-04 02:52] LABS: #Basophils 0.1 thou/uL (0.0-0.2); #Eosinphils 0.1 thou/uL (0.0-0.7); #Lymphocytes 2.6 thou/uL (1.20-3.40); #Monocytes 0.9 thou/uL (0.11-0.59); #Neutrophils 5.4 thou/uL (1.40-6.50); %Basophils 0.7 % (0.0-1.0); %Eosinophils 1.4 % (0.0-10.0); %Lymphocytes 28.5 % (21.0-51.0); %Monocytes 9.7 % (0.0-10.0); %Neutrophils 59.7 % (42.0-75.0); Mean Platelet Volume 9.1 fL (7.4-10.4); Platelet Count 114 10x3/uL (130-400); Platelet Morphology Comment Appears Decreased
[2022-11-04 03:01] LABS: Bilirubin Negative (Negative); Blood, Urine Negative (Negative); Clarity Clear (Clear); Glucose, Urine (Dipstick) Normal (Negative); Ketone, Urine Negative (Negative); Leukocyte Negative Leu/uL (Negative); Nitrite Negative (Negative); Protein, Urine (Dipstick) Negative (Neg-Trace); Specific Gravity, Urine 1.006 (1.002-1.036); Urobilinogen Normal mg/dL (Less than 2)
== END 2022-11-04 05:35 | disposition home or self-care (01) ==
LOC: ERS 01:51
DX: S01.81XA Laceration without foreign body of other part of head, initial encounter (principal); S13.4XXA Sprain of ligaments of cervical spine, initial encounter; E78.00 Pure hypercholesterolemia, unspecified; I10 Essential (primary) hypertension; W19.XXXA Unspecified fall, initial encounter
CPT/HCPCS: 12013; 36415; 36416; 70450; 70486; 72125; 80053; 81003; 85025; 99283; J2001

== ENCOUNTER 2022-11-04 15:27 | Emergency (ER) | payer MEDICARE, OTHER ==
[2022-11-04] MEDS ORDERED: Acetaminophen 500 MG TAB ONE (17:00)
== END 2022-11-04 17:33 | disposition home or self-care (01) ==
LOC: ERS 15:27
DX: S12.000A Unspecified displaced fracture of first cervical vertebra, initial encounter for closed fracture (principal); E78.5 Hyperlipidemia, unspecified; I10 Essential (primary) hypertension; W19.XXXA Unspecified fall, initial encounter; Z79.01 Long term (current) use of anticoagulants

== ENCOUNTER 2023-02-18 22:27 | Observation (INO) | payer MEDICARE, OTHER ==
[2023-02-19 00:14] VITALS: BMI 39.8
[2023-02-19] MEDS ORDERED: Nitroglycerin 0.4 MG TAB (25 Tab Bottle) SL PRN (00:37)
[2023-02-19] MEDS ORDERED: Ondansetron ODT 4 MG TAB PO PRN (00:37)
[2023-02-19] MEDS ORDERED: Ondansetron PF 4 MG/2 ML Vial IVP PRN (00:37)
[2023-02-19] MEDS ORDERED: Furosemide 20 MG TAB PO PRN (01:04)
[2023-02-19] MEDS ORDERED: Sotalol HCl 80 MG TAB PO SCH (01:15)
[2023-02-19] MEDS ORDERED: Apixaban 5 MG TAB PO SCH (01:15)
[2023-02-19] MEDS ORDERED: Acetaminophen 500 MG TAB PO SCH (01:15)
[2023-02-19 01:28] LABS: Troponin I 0.023 ng/mL (< 0.028)
[2023-02-19 05:24] LABS: #Eosinphils 0.2 thou/uL (0.0-0.7); #Monocytes 0.7 thou/uL (0.11-0.59); #Neutrophils 4.2 thou/uL (1.40-6.50); %Basophils 0.4 % (0.0-1.0); %Eosinophils 3.1 % (0.0-10.0); %Lymphocytes 23.7 % (21.0-51.0); %Monocytes 10.3 % (0.0-10.0); %Neutrophils 61.9 % (42.0-75.0); Hemoglobin 13.1 g/dL (12.0-16.0); Mean Corpuscular HGB CONC 32.9 g/dL (32.0-36.0); Mean Corpuscular Hemoglobin 33.8 pg (27.0-31.0); Mean Corpuscular Volume 102.6 fl (78.0-98.0); Mean Platelet Volume 11.1 fL (7.4-10.4); Platelet Count 133 10x3/uL (130-400); Red Blood Cell (RBC) Count 3.88 mill/uL (4.20-5.40); White Blood Cell (WBC) Count 6.7 10x3/uL (4.8-10.8)
[2023-02-19 05:27] LABS: Hemoglobin A1c 4.8 % (4.0-6.0)
[2023-02-19] MEDS: Nitroglycerin 2% Ointment 1 INCH/1 GM Packet TOP SCH ×3 (05:37→21:30)
[2023-02-19] MEDS: Levothyroxine Sodium 125 MCG TAB PO SCH (05:37)
[2023-02-19 05:49] LABS: Anion Gap 13 mmol/L (10-20); BUN (Urea Nitrogen) 18 mg/dL (9.8-20.1); Calc. Creatinine Clearance 86 mL/min (70-130); Calcium 8.7 mg/dL (7.8-10.44); Carbon Dioxide 23 mmol/L (23-31); Cardiac Risk 2.8 (Less than 4.5); Chloride 108 mmol/L (98-107); Cholesterol 103 mg/dl (< 200 Desired); Estimated GFR 66; Glucose 99 mg/dL (83-110); HDL Cholesterol 37 mg/dL (>60 Neg Risk); LDL Cholesterol, Calculated 50 mg/dL; Potassium 3.7 mmol/L (3.5-5.1); Sodium 140 mmol/L (136-145); Triglycerides 80 mg/dL (Less than 150)
[2023-02-19 05:50] LABS: Troponin I 0.014 ng/mL (< 0.028)
[2023-02-19] MEDS: Famotidine 20 MG TAB PO SCH ×2 (08:53→21:27)
[2023-02-19] MEDS: Atorvastatin Calcium 10 MG TAB PO SCH (08:53)
[2023-02-19] MEDS: Apixaban 5 MG TAB PO SCH ×2 (08:53→21:28)
[2023-02-19] MEDS: Sotalol HCl 80 MG TAB PO SCH ×2 (08:53→21:44)
[2023-02-19] MEDS: Acetaminophen 325 MG TAB PO PRN ×3 (08:57→21:28)
[2023-02-19] MEDS ORDERED: Escitalopram Oxalate 10 mg Tablet PO SCH (21:00)
[2023-02-19] MEDS ORDERED: Gabapentin 300 MG CAP PO SCH (21:00)
[2023-02-19] MEDS ORDERED: Digoxin 0.125 MG TAB PO SCH (21:00)
[2023-02-19] MEDS ORDERED: cefTRIAXone\\ROCEPHIN 1 GM in Sodium Chloride 0.9% 100 ML IVPB SCH (21:30)
[2023-02-20] MEDS ORDERED: hydrALAZINE 20 MG/ML VIAL SLOW IVP SCH (00:15)
[2023-02-20] MEDS: Nitroglycerin 2% Ointment 1 INCH/1 GM Packet TOP SCH ×2 (05:18→16:01)
[2023-02-20] MEDS: Levothyroxine Sodium 125 MCG TAB PO SCH (05:18)
[2023-02-20] MEDS: Atorvastatin Calcium 10 MG TAB PO SCH (05:19)
[2023-02-20] MEDS: Sotalol HCl 80 MG TAB PO SCH (05:19)
[2023-02-20] MEDS: Famotidine 20 MG TAB PO SCH (05:19)
[2023-02-20] MEDS: Apixaban 5 MG TAB PO SCH (05:20)
[2023-02-20 05:27] LABS: Anion Gap 12 mmol/L (10-20); BUN (Urea Nitrogen) 16 mg/dL (9.8-20.1); Calc. Creatinine Clearance 91 mL/min (70-130); Carbon Dioxide 23 mmol/L (23-31); Chloride 106 mmol/L (98-107); Estimated GFR 70; Glucose 102 mg/dL (83-110); Potassium 3.7 mmol/L (3.5-5.1); Sodium 137 mmol/L (136-145)
[2023-02-20] MEDS ORDERED: Communication Order-Pharmacy FS SCH (06:00)
[2023-02-20] MEDS ORDERED: Sodium Chloride 0.9% 1,000 ML IV SCH (06:00)
[2023-02-20] MEDS: Acetaminophen 325 MG TAB PO PRN (09:03)
[2023-02-20] MEDS ORDERED: Losartan 25 MG TAB PO SCH ×2 (12:24→21:00)
[2023-02-20 16:01] VITALS: TEMP 98.3
[2023-02-20 17:10] VITALS: BP 179/79
[2023-02-21] MEDS ORDERED: Losartan 25 MG TAB PO SCH (09:00)
[2023-02-22] MEDS ORDERED: Sodium Chloride 0.9% 1,000 ML IV SCH (06:00)
== END 2023-02-20 17:57 | disposition home or self-care (01) ==
LOC: 2NO 23:54
PROVIDERS: ADMIT Internal Medicine; ATTEND Family Medicine
DX: R07.89 Other chest pain (principal); I48.0 Paroxysmal atrial fibrillation; I35.0 Nonrheumatic aortic (valve) stenosis; E78.5 Hyperlipidemia, unspecified; I50.32 Chronic diastolic (congestive) heart failure; I11.0 Hypertensive heart disease with heart failure; I25.84 Coronary atherosclerosis due to calcified coronary lesion; E03.9 Hypothyroidism, unspecified; R55 Syncope and collapse; N39.0 Urinary tract infection, site not specified; Z95.0 Presence of cardiac pacemaker; Z90.710 Acquired absence of both cervix and uterus; Z79.890 Hormone replacement therapy; Z79.899 Other long term (current) drug therapy; Z88.5 Allergy status to narcotic agent; Z79.01 Long term (current) use of anticoagulants
CPT/HCPCS: 80048 ×2; 80061; 83036; 84443; 84484 ×2; 85025; 87086; 93306; 97116; J0360; 36415; 96374; 96375; G0378; J0696; J3490; J7050

== ENCOUNTER 2024-03-05 10:06 | Emergency (ER) | payer MEDICARE, OTHER ==
[2024-03-05] MEDS ORDERED: HYDROcodone/Acetaminophen 5/325 mg Tablet ONE (11:38)
== END 2024-03-05 11:45 | disposition home or self-care (01) ==
LOC: ERS 10:06
DX: S06.0X0A Concussion without loss of consciousness, initial encounter (principal); H81.10 Benign paroxysmal vertigo, unspecified ear; I10 Essential (primary) hypertension; I48.91 Unspecified atrial fibrillation; E78.5 Hyperlipidemia, unspecified; E16.2 Hypoglycemia, unspecified; W18.30XA Fall on same level, unspecified, initial encounter; Z86.73 Personal history of transient ischemic attack (TIA), and cerebral infarction without residual deficits; Z55.6 Problems related to health literacy; Z75.3 Unavailability and inaccessibility of health-care facilities; Z95.0 Presence of cardiac pacemaker; Z79.82 Long term (current) use of aspirin
CPT/HCPCS: 70450; 72125

== ENCOUNTER 2024-08-11 10:55 | Outpatient (CLI) | payer MEDICARE, OTHER | END 2024-08-11 10:56 | disposition home or self-care (01) | LOC: BICMAMMO 10:55 | PROVIDERS: ATTEND Physician Assistant | DX: Z13.820 Encounter for screening for osteoporosis (principal); Z78.0 Asymptomatic menopausal state; M81.0 Age-related osteoporosis without current pathological fracture; M85.851 Other specified disorders of bone density and structure, right thigh | CPT/HCPCS: 77080 ==

== ENCOUNTER 2024-08-31 12:57 | Outpatient (CLI) | payer MEDICARE, OTHER | END 2024-08-31 12:58 | disposition home or self-care (01) | LOC: BICULT 12:57 | PROVIDERS: ATTEND Physician Assistant | DX: R22.41 Localized swelling, mass and lump, right lower limb (principal); R22.31 Localized swelling, mass and lump, right upper limb | CPT/HCPCS: 76999 ==